=== PATIENT | male | born 1940 | race Hispanic/Latino ===

== ENCOUNTER 2018-09-17 10:16 | Inpatient (IN) | payer MEDICARE ==
[~2018-09-17] VITALS: Ht 160 cm; Wt 98.5 kg
[~2018-09-17 10:16] MED LIST: AMLODIPINE BES2.5 MG; AMLODIPINE BESYL5 MG PO; AXIRON30 MG/1.5; BENICAR5 MG PO; BISOPROLOL-HCT1 EAC1 PO; BISOPROLOL-HCT1 EAC2; DIOVAN160 MG PO; INVOKAMET PO; LEVOTHYROXINE100 MCG; PRAVASTATIN SOD40 MG; TAMSULOSIN HCL0.4 MG PO; TERBINAFINE HC250 MG; TRIBENZOR 40-51 EAC1; VICTOZA 3-0.6 MG/0.1 SQ
[2018-09-17] MEDS ORDERED: ASPIRIN 81 MG CHEW TAB PO ONE ×2 (10:45→12:30)
[2018-09-17 10:54] LABS: BASOPHILS # (AUTO) 0.1 (0.0-0.1); BASOPHILS % 0.6 % (0.0-1.0); EOSINOPHILS # (AUTO) 0.2 (0.0-0.4); HEMATOCRIT 52.9 % (38.2-49.6); HEMOGLOBIN 17.7 g/dL (14.0-18.0); LYMPHOCYTES # (AUTO) 1.4 (1.0-3.2); MEAN CORPUSCULAR HEMOGLOBIN 29.3 pg (28-32); MEAN CORPUSCULAR HGB CONC 33.5 g/dL (31-35); MEAN CORPUSCULAR VOLUME 87.6 fL (81-99); MONOCYTES # (AUTO) 0.7 (0.2-0.8); MONOCYTES % 8.8 % (4.4-11.3); NEUTROPHILS # (AUTO) 5.6 (2.1-6.9); NEUTROPHILS % 70.1 % (38.7-80.0); PLATELET COUNT 190 x10e3/uL (140-360); RED BLOOD COUNT 6.04 x10e6/uL (4.3-5.7); RED CELL DISTRIBUTION WIDTH 14.1 % (11.7-14.4)
[2018-09-17 11:04] LABS: CLARITY,URINE CLEAR (CLEAR); COLOR,URINE YELLOW (YELLOW)
[2018-09-17 11:05] LABS: BILIRUBIN,URINE NEGATIVE (NEGATIVE); KETONES,URINE NEGATIVE (NEGATIVE); LEUKOCYTE ESTERASE ,URINE NEGATIVE (NEGATIVE); NITRITE,URINE NEGATIVE (NEGATIVE); PROTEIN,URINE DIPSTICK 1+ (NEGATIVE); URINE UROBILINOGEN 0.2 mg/dL (0.2 - 1)
[2018-09-17 11:09] LABS: INR 1.09; PROTHROMBIN TIME 15.1 seconds (11.9-14.5)
[2018-09-17 11:10] LABS: PARTIAL THROMBOPLASTIN TIME 31.6 seconds (23.8-35.5)
[2018-09-17 11:14] LABS: BACTERIA,URINE RARE /HPF; EPITHELIAL CELLS,URINE RARE /LPF; RBC,URINE 0-5 /HPF (0-5)
[2018-09-17 11:16] LABS: ALANINE AMINOTRANSFERASE 32 IU/L (0-55); ALBUMIN 3.3 g/dL (3.5-5.0); ALBUMIN/GLOBULIN RATIO 0.9 (0.8-2.0); ALKALINE PHOSPHATASE 83 IU/L (40-150); ANION GAP 16.2 mmol/L (8-16); BLOOD UREA NITROGEN 18 mg/dL (7-26); BUN/CREATININE RATIO 17 (6-25); CARBON DIOXIDE 26 mmol/L (22-29); CHLORIDE 104 mmol/L (98-107); CREATINE KINASE 55 IU/L (30-200); CREATININE, SERUM 1.07 mg/dL (0.72-1.25); EST GLOMERULAR FILTRATION RATE > 60 ML/MIN (60-); GLUCOSE 96 mg/dL (74-118); POTASSIUM 4.2 mmol/L (3.5-5.1); SODIUM 142 mmol/L (136-145)
--- NOTE | 2018-09-17 11:30 | Diagnostic Imaging Report ---
EXAMINATION: CHEST 2 VIEWS INDICATION: Abnormal EKG. COMPARISON: None FINDINGS: TUBES and LINES: None. LUNGS: Lungs are well inflated. There is mild central vascular congestion. Mild patchy bibasilar opacities, likely atelectasis. There is no evidence of pneumonia or pulmonary edema. PLEURA: No pleural effusion or pneumothorax. HEART AND MEDIASTINUM: There is mild cardiomegaly. There is a tortuous and ectatic thoracic aorta. BONES AND SOFT TISSUES: No acute osseous lesion. Soft tissues are unremarkable. UPPER ABDOMEN: No free air under the diaphragm. IMPRESSION: No acute radiographic abnormality. Cardiomegaly with central vascular congestion. No evidence of pulmonary edema. Ectatic and tortuous thoracic aorta. Signed by: Dr. Sly Peguero MD on 09/17/2018 11:27 AM
[2018-09-17] MEDS ORDERED: ENOXAPARIN SODIUM INJ 100 MG/ML SYR SC STA (12:11)
[2018-09-17] MEDS ORDERED: ONDANSETRON HCL INJ 2MG/ML 2ML 2 MG/ML VIAL IV PRN (12:30)
[2018-09-17 12:50] LABS: FREE THYROXINE INDEX 2.4263 (1.4-3.8); THYROID STIMULATING HORMONE 3.079 uIU/mL (0.350-4.940)
--- OUTSIDE RECORDS SUMMARY | 2018-09-17 13:37 | XMS REPORT ---
Author Author [facility] Address Unknown Phone Unavailable Care Team Providers Care Information Services Assistant Name Role Phone Sintia HOROWITZ Unavailable Unavailable Problems This patient has no known problems. Allergies, Adverse Reactions, Alerts This patient has no known allergies or adverse reactions. Medications This patient has no known medications. Results Test Description Test Time Test Comments Text Results Atomic Results Result Comments CHEST 2 VIEWS 2018-09-17 11:19:00 [facility] [address] [place] [address] Patient Name: JLUIS JENNINGS MR #: [id number] : 1940 Age/Sex: 77/M Req #: [id number] Adm Physician: Ordered by: YOKASTA MELENDEZ FLOOR COVERING LAYER Report #: [id number] Location: ER Room/Bed: Procedure: [id number] DX/CHEST 2 VIEWS Exam Date: 09/17/18 Exam Time: 1030 REPORT STATUS: Signed EXAMINATION: CHEST 2 VIEWS INDICATION: Abnormal EKG. COMPARISON: None FINDINGS: TUBES and LINES: None. LUNGS: Lungs are well inflated. There is mild central vascular congestion. Mild patchy bibasilar opacities, likely atelectasis. There is no evidence of pneumonia or pulmonary edema. PLEURA: No pleural effusion or pneumothorax. HEART AND MEDIASTINUM: There is mild cardiomegaly. There is a tortuous and ectatic thoracic aorta. BONES AND SOFT TISSUES: No acute osseous lesion. Soft tissues are unremarkable. UPPER ABDOMEN: No free air under the diaphragm. IMPRESSION: No acute radiographic abnormality. Cardiomegaly with central vascular congestion. No evidence of pulmonary edema. Ectatic and tortuous thoracic aorta. Signed by: Dr. Jose Trevino MD on 09/17/2018 11:27 AM Dictated By: JOSE TREVINO MD [id number] Transcribed By: NICCI on 09/17/18 112 COPY TO: YOKASTA MELENDEZ NP
[2018-09-17] MEDS: SODIUM CHLORIDE 0.9% 1000ML 1,000 ML IV SCH (14:00)
--- NOTE | 2018-09-17 15:14 | NUR ---
Recvd patient from ER, assisted him to bed, AAOx3, Not in any distress, denies any chest pain or SOB, on Tele box running Afib 109, call placed and left voice message to Dr Parrish
[2018-09-17 15:46] VITALS: BP 122/90
--- NOTE | 2018-09-17 16:05 | NUR ---
Lory call from From Dr Shivani preston new order to consult Dr De La Fuente
[2018-09-17 16:36] VITALS: BP 137/96
[2018-09-17] MEDS: BISOPROLOL FUMARATE 10 MG TAB PO SCH (16:55)
[2018-09-17] MEDS: HYDROCHLOROTHIAZIDE 25 MG TAB PO SCH (16:55)
[2018-09-17 18:57] LABS: CREATINE KINASE 60 IU/L (30-200)
--- NOTE | 2018-09-17 19:00 | NUR ---
received report from day nurse. patient is resting comfortably in bed. bed is in lowest position. will continue to monitor patient.
[2018-09-17 19:25] VITALS: BP 138/96
[2018-09-17 20:00] VITALS: BP 138/96
[2018-09-18] VITALS (8 sets, daily range): BP systolic 113–129; BP diastolic 73–91
[2018-09-18] MEDS: SODIUM CHLORIDE 0.9% 1000ML 1,000 ML IV SCH (01:25)
[2018-09-18 04:04] LABS: CREATINE KINASE 51 IU/L (30-200)
[2018-09-18 05:23] LABS: BASOPHILS # (AUTO) 0.1 (0.0-0.1); EOSINOPHILS # (AUTO) 0.4 (0.0-0.4); EOSINOPHILS % 4.4 % (0.0-6.0); HEMATOCRIT 52.1 % (38.2-49.6); LYMPHOCYTES # (AUTO) 1.7 (1.0-3.2); MEAN CORPUSCULAR HEMOGLOBIN 28.9 pg (28-32); MEAN CORPUSCULAR HGB CONC 32.6 g/dL (31-35); MEAN CORPUSCULAR VOLUME 88.5 fL (81-99); MONOCYTES # (AUTO) 0.7 (0.2-0.8); MONOCYTES % 8.3 % (4.4-11.3); NEUTROPHILS # (AUTO) 5.3 (2.1-6.9); NEUTROPHILS % 64.8 % (38.7-80.0); PLATELET COUNT 189 x10e3/uL (140-360); RED BLOOD COUNT 5.89 x10e6/uL (4.3-5.7); RED CELL DISTRIBUTION WIDTH 14.1 % (11.7-14.4)
[2018-09-18 05:50] LABS: ANION GAP 14.6 mmol/L (8-16); BLOOD UREA NITROGEN 17 mg/dL (7-26); BUN/CREATININE RATIO 15 (6-25); CALCIUM 9.3 mg/dL (8.4-10.2); CARBON DIOXIDE 23 mmol/L (22-29); CHLORIDE 104 mmol/L (98-107); CREATININE, SERUM 1.11 mg/dL (0.72-1.25); EST GLOMERULAR FILTRATION RATE > 60 ML/MIN (60-); GLUCOSE 96 mg/dL (74-118); POTASSIUM 4.6 mmol/L (3.5-5.1); SODIUM 137 mmol/L (136-145)
[2018-09-18] MEDS: LEVOTHYROXINE SODIUM 100 MCG TAB PO SCH (05:52)
--- NOTE | 2018-09-18 06:59 | NUR ---
Report given to day nurse. patient is resting comfortably in bed. bed is in lowest position and call nolen is within reach. will continue to monitor patient.
--- NOTE | 2018-09-18 07:25 | NUR ---
Patient up in bed, Alert with no distress, denies any chest pain or SOB, Call light in reach
--- NOTE | 2018-09-18 07:41 | Diagnostic Imaging Report ---
EXAMINATION: CHEST SINGLE (PORTABLE) INDICATION: ^NEW ONSET AFIB ^[id number] ^[id number] COMPARISON: 09/17/2018 FINDINGS: AP view TUBES and LINES: None. LUNGS: Lungs are well inflated. Bilateral interstitial edema, mildly increased. Bibasilar atelectasis. PLEURA: No pleural effusion or pneumothorax. HEART AND MEDIASTINUM: Stable moderate enlargement of the cardiac silhouette. Tortuous thoracic aorta with possible ectasia of the ascending thoracic segment. BONES AND SOFT TISSUES: No acute osseous lesion. Soft tissues are unremarkable. UPPER ABDOMEN: No free air under the diaphragm. IMPRESSION: Cardiomegaly with mildly increased bilateral interstitial edema. Signed by: Dr. Mercedez Perez M.D. on 09/18/2018 7:38 AM
[2018-09-18] MEDS ORDERED: CANAGLIFLOZIN 300 MG TABLET PO SCH (08:00)
[2018-09-18] MEDS ORDERED: METFORMIN HCL 500 MG TAB PO SCH (08:00)
[2018-09-18] MEDS: TAMSULOSIN HCL 0.4 MG CAP PO SCH (08:28)
[2018-09-18] MEDS: HYDROCHLOROTHIAZIDE 25 MG TAB PO SCH (08:28)
[2018-09-18] MEDS: VALSARTAN 160 MG TAB PO SCH (08:28)
[2018-09-18] MEDS: ASPIRIN 81 MG ENTERIC COATED PO SCH (08:28)
[2018-09-18] MEDS: BISOPROLOL FUMARATE 10 MG TAB PO SCH (08:29)
[2018-09-18] MEDS ORDERED: CANAGLIFLOZIN PO SCH (09:00)
[2018-09-18] MEDS ORDERED: METFORMIN PO SCH (09:00)
[2018-09-18] MEDS ORDERED: BISOPROLOL/HCTZ 5/6.25MG TAB PO SCH (09:00)
[2018-09-18] MEDS ORDERED: DEXTROSE 50% SYRINGE 50 ML IV PRN (12:00)
[2018-09-18] MEDS ORDERED: METOPROLOL TARTRATE INJ 1 MG/ML VIAL IV PRN (12:45)
[2018-09-18] MEDS ORDERED: HYDRALAZINE HCL 20 MG/ML VIAL IV PRN (12:45)
[2018-09-18 13:13] LABS: CHOL/HDL RATIO 5.2 (3.9-4.7); MAGNESIUM 1.7 MG/DL (1.3-2.1); PHOSPHORUS 2.7 MG/DL (2.3-4.7)
[2018-09-18] MEDS: METOPROLOL TARTRATE 50 MG TAB PO SCH ×2 (13:20→17:40)
--- NOTE | 2018-09-18 14:04 | History and Physical ---
CHIEF COMPLAINT: Atrial fibrillation with rapid ventricular rate response. HISTORY OF PRESENT ILLNESS: Patient is a 77-year-old male with hypertension, hypothyroidism, enlarged prostate, and diabetes type 2 with no symptoms, came to see his primary care physician, Dr. eCcil Grant for check up and found to have atrial fibrillation with rapid rate. The patient was told to go to the hospital. In the emergency room, his heart rate was 132, beat irregularly irregular with atrial fibrillation. Patient did not complain of any palpitation or chest pain. His echocardiogram that was done showed ejection fraction of 40-45%. The patient is otherwise stable. He had mild TR and trace mitral regurgitation. The patient is otherwise stable. Cardiac enzyme is negative at this time. The patient had medications for heart rate. He was given IV Cardizem. The patient is otherwise stable at this time. The atrial fibrillation is new onset, no history previously. PAST MEDICAL HISTORY: Diabetes, hypertension, hypothyroidism, and enlarged prostate, new-onset atrial fibrillation. PAST SURGICAL HISTORY: Noncontributory. SOCIAL HISTORY: Patient does not smoke or use alcohol. No recreational drugs. ALLERGIES: NO KNOWN ALLERGIES. HOME MEDICATIONS: Norvasc, bisoprolol/HCTZ, levothyroxine, Victoza, Flomax, valsartan, Invokana, and metformin. PHYSICAL EXAMINATION VITAL SIGNS: Temperature is 98, blood pressure 129/85, pulse rate 130. CARDIOVASCULAR: Heart rate is atrial fibrillation, rate controlled now at 63, irregularly regular. No gross murmur, gallop, or rub. ABDOMEN: Soft, obese, nontender and no distention. EXTREMITIES: No gross cyanosis or edema. NEUROLOGIC: No gross focal deficit. LABORATORY DATA: Sodium is 137, potassium 4.6, chloride 104, bicarb 23, BUN is 17, creatinine 1.3, glucose 96. WBC is 8.2, hemoglobin 17, hematocrit 52, and platelets 189. INR is 1.09. TSH is 3.07. BNP is 483. Cardiac enzymes negative. IMPRESSION 1. New-onset atrial fibrillation with rapid ventricular rate response. 2. Low left ventricular ejection fraction of 40% on echocardiogram. 3. Baseline diabetes type 2. 4. Hypertension. 5. Enlarged prostate. 6. Hypothyroidism. PLAN: Patient will need cardiac workup with . We will adjust patient's home medications. Place the patient on Lovenox for now. We will monitor the patient closely. Discussed with the patient regarding treatment plan. The patient will be admitted. Job#: [id number] KEYONNA
[2018-09-18] MEDS: ENOXAPARIN INJ 80 MG/0.8 ML SYR SC SCH ×2 (14:50→21:47)
[2018-09-18] MEDS: INSULIN LISPRO 100 UNIT/1 ML 3ML VIAL SQ SCH ×2 (16:30→21:00)
[2018-09-18] MEDS ORDERED: RIVAROXABAN 10 MG TABLET PO SCH (17:00)
--- NOTE | 2018-09-18 18:29 | NUR ---
patient resting in bed, denies any pain, not in any distress, call light in reach
--- NOTE | 2018-09-18 22:00 | NUR ---
received pt from room 176 to room 210, AAOx4, resp even and unlabored, skin intact, tele #14 with pt and pt running afib, ambulatory by self with steady gait, able to verbalize needs, no c/o pain/discomfort, bed in lowest and locked position with call light in reach
[2018-09-19] VITALS: BP 131/99
[2018-09-19 04:00] VITALS: BP 120/85
[2018-09-19 05:17] LABS: BASOPHILS # (AUTO) 0.1 (0.0-0.1); BASOPHILS % 0.8 % (0.0-1.0); EOSINOPHILS # (AUTO) 0.4 (0.0-0.4); EOSINOPHILS % 4.2 % (0.0-6.0); HEMATOCRIT 50.4 % (38.2-49.6); HEMOGLOBIN 16.9 g/dL (14.0-18.0); LYMPHOCYTES # (AUTO) 1.8 (1.0-3.2); MEAN CORPUSCULAR HGB CONC 33.5 g/dL (31-35); MEAN CORPUSCULAR VOLUME 86.6 fL (81-99); MONOCYTES % 10.7 % (4.4-11.3); NEUTROPHILS # (AUTO) 5.7 (2.1-6.9); NEUTROPHILS % 63.7 % (38.7-80.0); PLATELET COUNT 196 x10e3/uL (140-360); RED BLOOD COUNT 5.82 x10e6/uL (4.3-5.7); RED CELL DISTRIBUTION WIDTH 14.3 % (11.7-14.4)
[2018-09-19] MEDS: LEVOTHYROXINE SODIUM 100 MCG TAB PO SCH (05:26)
[2018-09-19 05:39] LABS: ANION GAP 15.1 mmol/L (8-16); BLOOD UREA NITROGEN 20 mg/dL (7-26); BUN/CREATININE RATIO 19 (6-25); CALCIUM 9.2 mg/dL (8.4-10.2); CARBON DIOXIDE 21 mmol/L (22-29); CHLORIDE 105 mmol/L (98-107); CREATININE, SERUM 1.04 mg/dL (0.72-1.25); EST GLOMERULAR FILTRATION RATE > 60 ML/MIN (60-); GLUCOSE 87 mg/dL (74-118); POTASSIUM 4.1 mmol/L (3.5-5.1); SODIUM 137 mmol/L (136-145)
--- NOTE | 2018-09-19 07:11 | NUR ---
PT ALERT RESP EVEN AND UNLABORED AT THIS TIME NO DISTRESS NOTED, TELE IN PLACE, NO C/O PAIN WHEN ASKED, PT ABLE TO MAKE NEEDS KNOWN, CALL LIGHT IN REACH.
[2018-09-19] MEDS: INSULIN LISPRO 100 UNIT/1 ML 3ML VIAL SQ SCH ×4 (07:30→21:00)
[2018-09-19 08:41] VITALS: BP 123/70
[2018-09-19] MEDS: ASPIRIN 81 MG ENTERIC COATED PO SCH (09:33)
[2018-09-19] MEDS: ENOXAPARIN INJ 80 MG/0.8 ML SYR SC SCH (09:34)
[2018-09-19] MEDS: VALSARTAN 160 MG TAB PO SCH (09:34)
[2018-09-19] MEDS: TAMSULOSIN HCL 0.4 MG CAP PO SCH (09:34)
[2018-09-19] MEDS: METOPROLOL TARTRATE 50 MG TAB PO SCH ×2 (09:34→17:00)
[2018-09-19 11:44] VITALS: BP 115/69
--- NOTE | 2018-09-19 12:43 | Diagnostic Imaging Report ---
EXAM: CT Chest WITH contrast INDICATION: Hemoptysis. COMPARISON: Chest radiograph 09/18/2018. TECHNIQUE: Chest was scanned utilizing a multidetector helical scanner from the lung apex through the level of the adrenal glands without administration of IV contrast. Coronal and sagittal reformations were obtained. Routine protocol was performed. Dose modulation, iterative reconstruction, and/or weight based adjustment of the mA/kV was utilized to reduce the radiation dose to as low as reasonably achievable. IV CONTRAST: 100 mL of Isovue 370 RADIATION DOSE: Total DLP: 581 mGy*cm Estimated effective dose: (DLP x 0.014 x size factor) mSv COMPLICATIONS: None FINDINGS: LINES/ TUBES: None. VASCULAR: There is a type A aortic injury with possible dissection flap extending from the proximal ascending aorta on series 2, image 31 and terminating distally proximal to the takeoff of the right brachiocephalic artery on image 23. Soft tissue thickening along the right lateral margin of the aorta could reflect thrombus within a false lumen or alternatively wall thickening from intramural hematoma. Study is suboptimally evaluated in the absence of dedicated CT angiogram. There is an ascending aortic aneurysm measuring up to 6.2 cm. The aortic arch measures up to 3.2 cm and the descending thoracic aorta measures up to 3 cm. Scattered atherosclerotic calcifications within the thoracic aorta and coronary vessels. LUNGS AND AIRWAYS: The central airways are patent. There are multifocal patchy groundglass and interstitial opacities scattered throughout bilateral lungs, right greater than left. The findings are most pronounced in the right lower lobe, middle lobe, and right upper lobe. There is a 6 mm solid pulmonary nodule in the left lower lobe on series 3, image 39. PLEURA: The pleural spaces are clear. HEART AND MEDIASTINUM: The thyroid gland is normal. No mediastinal, hilar or axillary lymphadenopathy. There is mild cardiomegaly. No evidence of pericardial effusion. UPPER ABDOMEN: Limited visualization of the upper abdomen demonstrates no abnormality within the partially visualized liver spleen or pancreas. Partially seen left renal cyst. There is reflux of contrast into the IVC, suggestive of right heart dysfunction. BONES: No acute osseous abnormality. No suspicious lytic or blastic lesions. Mild degenerative changes of the visualized spine. IMPRESSION: Ascending thoracic aortic aneurysm measuring up to 6.2 cm with either type A aortic dissection with thrombosed false lumen in the subacute/chronic setting or possibly intramural hematoma in the acute setting. No evidence of extension into the great vessels. Findings are incompletely evaluated in the absence of dedicated CTA. Recommend dedicated CTA of the thoracic aorta for further evaluation and surgical consultation. Multifocal ground glass opacities with cardiomegaly. Findings could reflect mild pulmonary edema. Alternative considerations could include infectious or inflammatory etiologies. Pulmonary nodule measuring 6 mm in the left lower lobe. Follow-up chest CT is suggested in 6-12 months to assess for stability. Contact attempt was made starting on 07/19/2019 at 1235 PM. Attempted to contact referring physician on 09/19/2018 at 1242 PM, went to voice mail. Above findings were discussed with LOCO Mascorro on 07/19/2019 at 1250 PM who indicated the findings were understood and will be communicated to the referring physician. Radiologist call back cell number was also provided. Signed by: Dr. Sly Peguero MD on 09/19/2018 12:54 PM
--- NOTE | 2018-09-19 12:55 | NUR ---
received call from Dr. Peguero. about pt CT, Dr. Peguero states called Dr Machuca got voice mail.
--- NOTE | 2018-09-19 13:00 | NUR ---
call to Dr Parrish to give finding. found on CT, left message for . Also informed charge nurse of Dr. Peguero findings.
--- NOTE | 2018-09-19 13:08 | NUR ---
Dr. Billy here to speak with pt about findings on his CT. pt currently on bedrest.
--- NOTE | 2018-09-19 13:47 | NUR ---
spoke with Dr. Parrish orders given to consult Dr Piedra.
--- NOTE | 2018-09-19 13:51 | NUR ---
A/S spoke with Emili, stated Dr. Piedra java front end web developer.
--- NOTE | 2018-09-19 13:51 | NUR ---
Stat consult to Dr. Piedra, for Dr. Parrish
--- NOTE | 2018-09-19 14:00 | NUR ---
Dr. Piedra return call, and stated consult Dr. Martínez in Med center. infomation given to Nursing Telemetry Tech Logn Thomas, whom then gave me a number for the transfer center, For Dr. Martínez, Spoke with A/S Naina whom stated Dr. Whitt is crowd controller, also called Dr. Peguero to inform him that Dr. Whitt from [facility] will call phone number given to A/S Naina.
--- NOTE | 2018-09-19 14:20 | NUR ---
Dr Parrish returned call, information given that Dr. Whitt was consulted on pt findings on CT, also gave Dr. Shivani Peguero cell number.
--- NOTE | 2018-09-19 14:30 | NUR ---
Dr. Piedra called and accepted pt. [facility].
[2018-09-19 15:57] VITALS: BP 124/96
--- NOTE | 2018-09-19 17:00 | NUR ---
PT ALERT RESP EVEN AND UNLABORED AT THIS TIME , TELE READING A FIB 112, NO C/O PAIN NO C/O OF SOB, WILL CONT TO MONITOR, DOUG LIGHT IN REACH
--- NOTE | 2018-09-19 18:00 | NUR ---
AWAITING TRANSFER, CALL LIGHT IN REACH.
[2018-09-19] MEDS ORDERED: SODIUM CHLORIDE 0.9% 100 ML 100 ML ONE (18:03)
[2018-09-19] MEDS ORDERED: IOPAMIDOL 370 MG/ML 200 ML INFUS..BTL INJ ONE (18:03)
--- NOTE | 2018-09-19 19:56 | NUR ---
REPORT GIVEN TO ONCOMING NURSE. FOR CONTINUED CARE.
[2018-09-19 20:00] VITALS: BP 130/94
--- NOTE | 2018-09-19 21:02 | NUR ---
RECEIVED PT IN BED AOX3 .NO ACUTE DISTRESS NOTED .WAITING TO TRANSFER TO [facility] .CALL LIGHT WITH IN REACH .CONTINUE TO MONITOR
[2018-09-20] VITALS (21 sets, daily range): BP systolic 101–135; BP diastolic 73–109
[2018-09-20] MEDS: LEVOTHYROXINE SODIUM 100 MCG TAB PO SCH (05:42)
--- NOTE | 2018-09-20 06:21 | NUR ---
PT WAS WAITING TO GO TO REPLACED BY [facility] .WAITING TO GET THE ROOM.CALL SMALL WITH IN REACH
[2018-09-20] MEDS: INSULIN LISPRO 100 UNIT/1 ML 3ML VIAL SQ SCH ×4 (07:30→21:00)
[2018-09-20] MEDS: METOPROLOL TARTRATE 50 MG TAB PO SCH ×2 (09:00→16:40)
[2018-09-20] MEDS: VALSARTAN 160 MG TAB PO SCH (09:00)
[2018-09-20] MEDS: TAMSULOSIN HCL 0.4 MG CAP PO SCH (09:43)
[2018-09-20] MEDS: SODIUM CHLORIDE 0.9% 1000ML 1,000 ML IV SCH (10:30)
--- NOTE | 2018-09-20 11:11 | NUR ---
CASE MANAGEMENT ASSESSMENT Radio Repairer to bedside to discuss plan of care with patient/family. CM/SW role and care transitions discussed. Anticipated discharge plan discussed along with duration of care. CM/SW discussed patients right to make decisions in care. CM/SW work hours given. Patient lives: alone Admit/Transfer: thru ED Hospital/ER visits since last admit: never been hospitalized; no ED visits POA/Emergency contact: sarah Jules [phone], jemal Ramírez [phone] Current/Previous Home Health: none PCP/Follow-up Care: Dr. Celis; advised pt to follow up with a doctor within 7 days of discharge from hospital. Current/Previous DME: none Medications (referring to index hospitalization or the first time you were in the hospital) a. Were changes made in your medications when you were in the hospital on [index hospitalization]? n/a b. Did you understand the changes? n/a c. Were you able to obtain your new medications right away? n/a d. Were you able to take your medications like the doctor wanted you to? n/a e. Did the hospital give you an accurate, easy to understand list of medications when you left? n/a Scale of 1-10 how comfortable does patient feel with disease management in outpatient settin Other Services: none Employment Status: retired Areas of Concerns: new onset a fib with rvr; aortic aneurysm Referral Needs: none Education Needs: medical management IMM/NOLAN given and signed (if applicable): IMM Goal for discharge: currently in process of being transferred to Medical Center. Initiated over the weekend. CM/SW left business card at the bedside with contact information. Name and number was also written on the patients whiteboard. Patient verbalized understanding of discussion. CM will follow-up with ongoing discharge and transition of care needs.
[2018-09-20] MEDS ORDERED: FENTANYL CITRATE/PF 100MCG/2 ML INJ ONE (12:14)
[2018-09-20] MEDS ORDERED: LIDOCAINE HCL 2% LOCAL 20 ML VIAL ONE (12:14)
[2018-09-20] MEDS ORDERED: IOPAMIDOL 370 MG/ML 200 ML INFUS..BTL INJ ONE (12:14)
[2018-09-20] MEDS ORDERED: MIDAZOLAM HCL 2 MG/2 ML VIAL ONE (12:14)
[2018-09-20] MEDS ORDERED: HEPARIN SOD/SOD CHLORIDE 2,000 ML ONE (12:14)
[2018-09-20] MEDS ORDERED: SODIUM CHLORIDE 0.9% 1000ML 1,000 ML ONE (12:14)
--- NOTE | 2018-09-20 12:20 | NUR ---
patient off unit for heart cath.
--- NOTE | 2018-09-20 12:46 | NUR ---
Called transfer center and spoke to Mary Ellen. Still pending bed availability. She stated that pt will get a bed as soon as one becomes available.
[2018-09-20] MEDS ORDERED: NOREPINEPHRINE 8 MG/D5W 250 ML 0 ML ONE (13:11)
[2018-09-20] MEDS ORDERED: ATROPINE SULFATE 0.1 MG/ML 10ML SYR ONE (13:30)
--- NOTE | 2018-09-20 15:30 | NUR ---
Received report from Francine Nicole RN. Reviewed medications given, and procedural events. Patient laying flat with right leg in bed. Patient awake,alert,and oriented x3. Respirations even and unlabored on room air. Sheath removed from right groin at 1351 per Francine ADAN. Dressing to right groin is clean,dry, and intact without signs or symptoms of infiltrations at this time. IV to right antecubital is without signs or symptoms of infiltration at this time. Patient appears to be in no signs of acute distress. Patient waiting for IMCU bed at this time.
--- NOTE | 2018-09-20 15:50 | NUR ---
Dr. De La Fuente notified of BP 130s/100s. Dr. De La Fuente stated no new orders in regards to blood pressure. Dr. De La Fuente stated ok to resume previous diet. stated patient needs to lay flat for 6 hours. Patient needs to continue bedrest. Patient may sit up and move right leg after 6 hours.
--- NOTE | 2018-09-20 15:57 | NUR ---
Patient void 100 ml urine via urinal. No distress noted at this time.
--- NOTE | 2018-09-20 16:25 | NUR ---
Finger food tray brought to bedside. will monitor patient.
--- NOTE | 2018-09-20 17:24 | Operative Report ---
DATE OF PROCEDURE: September 20, 2018 PROCEDURES PERFORMED 1. Left heart catheterization. 2. Selective coronary angiogram. INDICATIONS: Aortic dissection, rule out coronary artery disease. LV dysfunction. BLOOD LOSS: 2 mL. ANESTHESIA: 2% lidocaine for local anesthesia. Fentanyl and Versed for conscious sedation. DESCRIPTION OF PROCEDURE: After informed consent, patient was brought to the cardiac catheterization laboratory and placed on the table. Both groins were painted and draped in a sterile fashion. Lidocaine injected in the right groin for local anesthesia. Right femoral artery was accessed by Seldinger technique and a 5-Surinamese sheath was placed in right femoral artery. Attempts were made to cannulate the left main using a JL4 5-Surinamese catheter; however, it would not access the ostium due to tortuosity and dilatation at the aortic root. So a JL5 5-Surinamese catheter was subselective to cannulate the left main. Coronary angiogram was performed and images obtained in multiple views. The right coronary artery was cannulated using a 3DRC 5-Surinamese catheter. Coronary angiogram was performed and images obtained in multiple views. After the coronary angiogram was performed, patient was noted that some ST elevations on the monitor. He transiently dropped his blood pressure to 67 systolic. Patient was given IV fluids. Within a few minutes, patient's blood pressure went to [address] segment elevation resolved. Subsequently EKG showed atrial fibrillation with some T-wave inversions in inferior leads without any ST elevation. No LV gram or aortogram was performed. REPORT LEFT MAIN: Normal caliber and no significant stenosis. LEFT ANTERIOR DESCENDING: Normal caliber. No significant stenosis. LEFT CIRCUMFLEX: Normal caliber and luminal irregularities. RIGHT CORONARY ARTERY: Normal caliber and no significant stenosis. PLAN: Patient is awaiting transfer to the [facility] for further management of his type A thoracic aortic dissection management. Job#: [id number] ILIR
--- NOTE | 2018-09-20 17:25 | NUR ---
Gave report to Kashif Meadows RN. Reviewed medications given during procedure, orders, and procedural events. Dressing to right groin is clean,dry, and intact and appears to be without signs or symptoms of bleeding at this time. Patient to lay flat until 1950 per physician orders. Per household appliance mechanic Patient is assigned bed 197 and is being cleaned at this time. Patient awake,alert, and orientedx3. Respirations even and unlabored on room air. No distress noted at this time.
--- NOTE | 2018-09-20 17:27 | NUR ---
Patient void clear yellow urine approximately 50ml.
--- NOTE | 2018-09-20 18:10 | NUR ---
RECEIVED PATIENT S/P CARDIAC CATH, AWAKE AND ALERT AND NO S/S OF DISTRESS, DRESSING TO RIGHT GROIN C/D/I WITH NO BLEEDING OR HEMATOMA NOTED, RIGHT PEDAL PULSES PALPABLE, INFORMED PATIENT BEDREST UNTIL 8PM, VERBALIZED UNDERSTANDING, UPDATED ON POC AND CALL SMALL IN REACH, WILL CONTINUE TO MONITOR
--- NOTE | 2018-09-20 19:30 | NUR ---
Received patient hemodynamically stable, calm in bed, femoral dressing dry, no complaints raised.
--- NOTE | 2018-09-20 22:57 | Consultation ---
DATE OF CONSULTATION: September 20, 2018 REASON FOR CONSULT: Ascending aortic aneurysm with possible dissection, atrial fibrillation; requested by Dr. Joe Parrish. [facility] [employer] [employer] is Dr. De La Fuente. HISTORY: I saw and evaluated this patient on September 20, 2018. He is a 77-year-old male with hypertension, hypothyroidism, who went to his primary care physician, Dr. Cecil Grant, and was found to have atrial fibrillation with rapid response. He was sent to the emergency room at [facility]. In the ER, the heart rate was 132 in an atrial fibrillation rhythm. He did not have any chest pain or complaints of palpitation. Echocardiogram showed EF 40% to 45% without any wall motion abnormalities. Patient had mild and trace mitral regurgitation. No aortic regurgitation was noted. Cardiac enzymes were negative. He was given IV Cardizem. Patient is still in atrial fibrillation but with a controlled rate of approximately 90 to 100. There is no history of myocardial infarction or chest pain. Patient has not had any syncope. This episode of atrial fibrillation is the initial episode. No PND or orthopnea. Patient says his exercise tolerance is good. He continues to smoke about a 1/2-pack per day and has a long history of smoking. After admission patient had some hemoptysis. His CT scan of the chest was obtained. This showed a dilated ascending aorta with possible hematoma and possible dissection. I have reviewed the images on the CT scan. Cardiac catheterization reportedly shows clean coronaries. It was not possible to image the ascending aorta at the time of cardiac catheterization. Cardiac cath films are not available this evening. Surgical evaluation is requested. PAST MEDICAL HISTORY: Positive for diabetes, hypertension, hypothyroidism, enlarged prostate and atrial fibrillation as above. PAST SURGICAL HISTORY: Unremarkable. SOCIAL HISTORY: Patient is a longtime smoker. He is still smoking about a 1/2-pack per day. No alcohol or IV drugs. ALLERGIES: NONE KNOWN. MEDICATIONS AT HOME: Norvasc, bisoprolol/hydrochlorothiazide, levothyroxine, Victoza, Flomax, valsartan, and metformin. FAMILY HISTORY: Negative for aneurysmal disease. REVIEW OF SYSTEMS GENERAL: Positive for fatigue. NEUROLOGIC: Negative for focal weakness in the extremities or dysarthria. HEENT: Negative for decreased vision or decreased hearing. CARDIAC: Positive as above. Positive for occasional chest pain and palpitation. PULMONARY: Positive for shortness of breath. Negative for wheezing. GI: No constipation or diarrhea. : Negative for hematuria or dysuria. ENDOCRINE: Negative for polyuria or polydipsia. VASCULAR: Negative for claudication. SKIN: Negative for rashes or itching. HEMATOLOGIC: Negative for clotting or bleeding. INFECTIOUS: Negative for fevers or sweating. PSYCHIATRIC: Negative for depression or anxiety. PHYSICAL EXAMINATION GENERAL: man, sitting up in bed, in no apparent distress. VITAL SIGNS: Blood pressure 115/60, pulse 90 to 100 and irregularly irregular, and respiratory rate 16. NECK: Supple and nontender. No JVD. CARDIAC: Irregular rate and an irregular rhythm. There are no murmurs or rubs. LUNGS: Clear to auscultation and percussion bilaterally. ABDOMEN: Globoid, benign. Good bowel sounds. No hepatosplenomegaly. BACK: No CVA tenderness. No muscular spasms. EXTREMITIES: No cyanosis, clubbing, or edema. VASCULAR: Carotids 2+/2+ bilaterally. No carotid bruits that I could appreciate. Radials are 1+/2+ bilaterally, femorals are 2+/2+ bilaterally. SKIN: No rashes or nonhealing ulcers. MUSCULOSKELETAL: Full range of motion at all joints. No joint swelling. NEUROLOGIC: Cranial nerves II through XII are intact. Sensation is intact to light touch and pinprick bilaterally. Strength is 5/5 in all extremities. LYMPHATIC: Negative for cervical, clavicular, or femoral adenopathy. LABORATORIES: White count 7.9, hemoglobin 17.7, hematocrit 52.9, and platelet count 190,000. INR is 1.09 and PT is 15.1. (Patient has been maintained on Xarelto.) IMPRESSION: Dilated ascending aorta. Evidence for dissection is not completely clear. We are trying to arrange transfer to [facility] as soon as possible to treat the aneurysmal disease and evaluate for possible dissection. Thank you very much for asking me to see this nice man. Job#: [id number]
[2018-09-21] VITALS (7 sets, daily range): BP systolic 97–136; BP diastolic 77–105
[2018-09-21] MEDS: SODIUM CHLORIDE 0.9% 1000ML 1,000 ML IV SCH (05:00)
[2018-09-21] MEDS: LEVOTHYROXINE SODIUM 100 MCG TAB PO SCH (06:00)
[2018-09-21] MEDS: INSULIN LISPRO 100 UNIT/1 ML 3ML VIAL SQ SCH ×4 (07:30→19:51)
[2018-09-21] MEDS: VALSARTAN 160 MG TAB PO SCH (08:40)
[2018-09-21] MEDS: METOPROLOL TARTRATE 50 MG TAB PO SCH ×2 (08:40→16:46)
[2018-09-21] MEDS: TAMSULOSIN HCL 0.4 MG CAP PO SCH (08:40)
[2018-09-21] MEDS ORDERED: ARTIFICIAL TEARS (OPTH) 15 ML BTL OU PRN (09:30)
--- NOTE | 2018-09-21 16:08 | NUR ---
report called to Jabari ADAN at [facility]. pt stable at this time.
--- NOTE | 2018-09-21 19:54 | NUR ---
Report received from AM nurse Radha. Patient comfortably sitting on the chair. Denied pain and no SOB. No respiratory distress noted. Spo2 maintained 98% with RA. V/S WNL. Patient waiting for EMS to transfer to [facility] for his continuing care.
--- NOTE | 2018-09-21 20:04 | NUR ---
Patient transferred to [facility] with EMS at 2003 by stretcher.Denied pain respiration even and unlabored,Spo2 maintained 99% with RA. BP was high 160/124,medicated with IV metoprolol 2.5mg as ordered. Patient left unit with stable condition.
== END 2018-09-21 20:03 | disposition short-term general hospital (02) | DRG 286 ==
LOC: ER 10:16 → ERHOLD 13:34 → IMCU 15:10 → OBSVTOIN 09-18 12:01 → MED/SURG2 09-18 20:41 → IMCU 09-20 18:19
PROVIDERS: ADMIT Internal Medicine; ATTEND Internal Medicine
PROC: 4A023N7 Measurement of Cardiac Sampling and Pressure, Left Heart, Percutaneous Approach (ICD-10-PCS; principal; 2018-09-20)
PROC: B2111ZZ Fluoroscopy of Multiple Coronary Arteries using Low Osmolar Contrast (ICD-10-PCS; 2018-09-20)
DX: I71.02 Dissection of abdominal aorta (principal); I50.23 Acute on chronic systolic (congestive) heart failure; R04.2 Hemoptysis; I11.0 Hypertensive heart disease with heart failure; E03.9 Hypothyroidism, unspecified; F17.210 Nicotine dependence, cigarettes, uncomplicated; E66.01 Morbid (severe) obesity due to excess calories; Z68.38 Body mass index [BMI] 38.0-38.9, adult; G47.30 Sleep apnea, unspecified; I48.91 Unspecified atrial fibrillation; E11.9 Type 2 diabetes mellitus without complications; Z79.4 Long term (current) use of insulin; N40.0 Benign prostatic hyperplasia without lower urinary tract symptoms
CPT/HCPCS: 36415; 71045; 71046; 71260; 80048; 80053; 80061; 81001; 82306; 82550; 82553; 82948; 83036; 83735; 83880; 84100; 84436; 84443; 84479; 84484; 84550; 85025; 85610; 85651; 85730; 93005; 93306; 93454; 99284; G0378; J1650; J2001; J2250; J7030; Q9967

== ENCOUNTER 2018-11-24 20:26 | Emergency (ER) | payer MEDICARE ==
--- OUTSIDE RECORDS SUMMARY | 2018-11-24 20:29 | XMS REPORT | Clinical Summary ---
Author Author PHYLICIA [facility] Address Unknown Phone Unavailable Care Team Providers Care Wall Steamer Name Role Phone Joe Winchester Unavailable Allergies No Known Allergies Medications End Date Status Medication Sig Dispensed Refills Start Date Active levothyroxine (SYNTHROID, levothyroxine 0 LEVOTHROID) 112 MCG 112 mcg tablet tablet Active tamsulosin (FLOMAX) 0.4 tamsulosin 0 mg Cap 24 hr capsule 0.4 mg 9 capsule Active oxybutynin (DITROPAN) 5 Take 5 mg by 0 MG tablet mouth. 9 Active losartan-hydroCHLOROthiaz Take 1 tablet 0 an (HYZAAR) 100-25 mg by mouth. 9 per tablet Active aspirin 81 MG EC tablet Take 81 mg by 0 mouth daily. Active metoprolol (LOPRESSOR) Take 1 tablet 60 tablet 0 100 MG tablet (100 mg 9 total) by mouth 2 (two) times daily. Active rivaroxaban (XARELTO) 20 Take 1 tablet 60 tablet 0 mg Tab tablet (20 mg total) 9 by mouth daily with dinner. 10/01/2018 Discontinued atenolol (TENORMIN) 50 MG atenolol 50 0 tablet mg tablet 10/01/2018 Discontinued clopidogrel (PLAVIX) 75 clopidogrel 0 mg tablet 75 mg tablet 9 10/01/2018 Discontinued rivaroxaban (XARELTO) 20 Take 1 tablet 60 tablet 0 mg Tab tablet (20 mg total) 9 by mouth daily with dinner. Active Problems Problem Noted Date HTN (hypertension) chronic areterial 09/27/2018 Hypothyroid 09/27/2018 A-fib (HCC), Asymptomatic with RVR 09/27/2018 PRIYA (obstructive sleep apnea) (home CPAP broken x1yr) 09/27/2018 BPH (benign prostatic hyperplasia) (home Flowmax) 09/27/2018 Tricuspid valve regurgitation, mild to moderate 09/27/2018 Mild concentric left ventricular hypertrophy (LVH) 09/27/2018 Obesity, Class II, BMI 35-39.9 09/27/2018 CAD (coronary artery disease), [place] coronary artery 09/27/2018 Diverticulosis 09/27/2018 H/O Low testosterone 09/27/2018 Pre-diabetes 09/27/2018 Hypertensive urgency 09/27/2018 Acute respiratory insufficiency 09/27/2018 Aortic dissection / aneurysm, chronic type 3 dissection S/P TEVAR, [place] 09/21/2018 (Dr. Martínez, 09/27/2018) Encounters Care Team Description Date Type Specialty Ericka Diaz NP Chronic dissection of thoracic aorta (HCC) 10/26/2018 Hospital Radiology Encounter Ericka Diaz NP Chronic dissection of thoracic aorta (HCC) 10/26/2018 Hospital Radiology Encounter Ericka Diaz NP Chronic dissection of thoracic aorta (HCC) (Primary Dx) 10/04/2018 Orders Only Joshua Martínez MD REPAIR,TEVAR-THORACIC ENDOVASCULAR ANEURYSM 09/27/2018 Surgery Jorje Cardoza MD 09/27/2018 Anesthesia Event Baron Byers MD Brann, MD Rudy Hernández Jaime, MD Zalavarria, MD Tanya Bill Joseph Stapleton, MD Dissection of thoracic aorta (HCC); Acute respiratory insufficiency; Atrial fibrillation, unspecified type (HCC); Hypertensive urgency 09/21/2018 Hospital Cardiology - Encounter 10/01/2018 09/21/2018 Orders Only General Internal Medicine after 11/23/2017 Social History Date Tobacco Use Types Packs/Day Years Used Never Smoker Alcohol Use Drinks/Week oz/Week Comments No Alcohol Habits Answer Date Recorded How often do you have a drink containing alcohol? Never 09/21/2018 How many drinks containing alcohol do you have on Not asked a typical day when you are drinking? How often do you have six or more drinks on one Not asked occasion? Sex Assigned at Date Recorded Not on file Industry Job Start Date Occupation Not on file Not on file Not on file Travel End Travel History Travel Start No recent travel history available. Last Filed Vital Signs Time Taken Vital Sign Reading 10/01/2018 7:50 AM DIMENSIONAL INSPECTOR Blood Pressure 139/101 10/01/2018 7:50 AM DIMENSIONAL INSPECTOR Pulse 101 10/01/2018 7:50 AM DIMENSIONAL INSPECTOR Temperature 35.8 C (96.4 F) 10/01/2018 7:50 AM DIMENSIONAL INSPECTOR Respiratory Rate 20 10/01/2018 7:50 AM DIMENSIONAL INSPECTOR Oxygen Saturation 95% 10/01/2018 3:37 AM DIMENSIONAL INSPECTOR Inhaled Oxygen 30% Concentration 10/01/2018 7:50 AM DIMENSIONAL INSPECTOR Weight 96.9 kg (213 lb 9.6 oz) 09/22/2018 3:50 AM DIMENSIONAL INSPECTOR Height 162.6 cm (5' 4") 10/01/2018 7:50 AM DIMENSIONAL INSPECTOR Body Mass Index 36.66 Plan of Treatment Not on file Implants Device Identifier Shelf Expiration Date Model / Serial / Lot Implanted Type Area Manufactur er 07/02/2020 [id number] / / [id number] Closure Sys Perclose Progl 6fr Cardiovasc Left: Aorta BERNARD 08689-76 - [id number] ular LAB:VASC Implanted: Qty: 1 on 09/27/2018 by Joshua Zhou MD 07/02/2020 [id number] / / [id number] Closure Sys Perclose Progl 6fr Cardiovasc Left: Aorta BERNARD 40051-82 - [id number] ular LAB:VASC Implanted: Qty: 1 on 09/27/2018 by Joshua hZou MD 01/01/2020 [id number] / / [id number] Closure Sys Perclose Progl 6fr Cardiovasc Left: Aorta BERNARD 96529-43 - [id number] ular LAB:VASC Implanted: Qty: 1 on 09/27/2018 by Joshua Zhou MD 09/27/2018 [id number] / [id number] / Ascending Stent Graft N/A: Aorta GORE Implanted: Qty: 1 on 09/27/2018 by Joshua Martínez MD 08/24/2020 [id number] / [id number] / Ascending Stent Graft N/A: Aorta GORE Implanted: Qty: 1 on 09/27/2018 by Joshua Martínez MD Procedures Comments Procedure Name Priority Date/Time Associated Diagnosis RHYTHM STRIP - SCAN 11/09/2018 11:51 AM CDT POCT-CREATININE Routine 10/26/2018 8:[address]/CTA ABDOMEN & PELVIS Routine 10/26/2018 Chronic dissection of 8:15 AM CDT thoracic aorta (HCC) CT/CTA CHEST Routine 10/26/2018 Chronic dissection of 8:15 AM CDT thoracic aorta (HCC) VASCULAR DIAGRAM -SCAN 10/06/2018 1:21 PM DIMENSIONAL INSPECTOR RHYTHM STRIP - SCAN 10/06/2018 1:21 PM DIMENSIONAL INSPECTOR POCT-GLUCOSE METER Routine 10/01/2018 7:49 AM DIMENSIONAL INSPECTOR XR CHEST 1 VIEW Routine 10/01/2018 PORTABLE/BEDSIDE 7:48 AM DIMENSIONAL INSPECTOR PROTHROMBIN TIME/INR Routine 10/01/2018 5:33 AM DIMENSIONAL INSPECTOR APTT Routine 10/01/2018 5:33 AM DIMENSIONAL INSPECTOR PHOSPHORUS Routine 10/01/2018 3:35 AM DIMENSIONAL INSPECTOR MAGNESIUM Routine 10/01/2018 3:35 AM DIMENSIONAL INSPECTOR CBC (HEMOGRAM ONLY) Routine 10/01/2018 3:35 AM DIMENSIONAL INSPECTOR BASIC METABOLIC PANEL (7) Routine 10/01/2018 3:35 AM DIMENSIONAL INSPECTOR POCT-GLUCOSE METER Routine 09/30/2018 9:07 PM DIMENSIONAL INSPECTOR CTA CHEST,ABDOMEN & STAT 09/30/2018 PELVIS - FOR DISSECTION 8:30 PM DIMENSIONAL INSPECTOR POCT-GLUCOSE METER Routine 09/30/2018 5:01 PM DIMENSIONAL INSPECTOR POCT-GLUCOSE METER Routine 09/30/2018 12:26 PM DIMENSIONAL INSPECTOR POCT-GLUCOSE METER Routine 09/30/2018 7:10 AM DIMENSIONAL INSPECTOR XR CHEST 1 VIEW Routine 09/30/2018 PORTABLE/BEDSIDE 6:36 AM DIMENSIONAL INSPECTOR PROTHROMBIN TIME/INR Routine 09/30/2018 5:04 AM DIMENSIONAL INSPECTOR APTT Routine 09/30/2018 5:04 AM DIMENSIONAL INSPECTOR PHOSPHORUS Routine 09/30/2018 5:04 AM DIMENSIONAL INSPECTOR MAGNESIUM Routine 09/30/2018 5:04 AM DIMENSIONAL INSPECTOR CBC (HEMOGRAM ONLY) Routine 09/30/2018 5:04 AM DIMENSIONAL INSPECTOR BASIC METABOLIC PANEL (7) Routine 09/30/2018 5:04 AM DIMENSIONAL INSPECTOR POCT-GLUCOSE METER Routine 09/29/2018 9:44 PM DIMENSIONAL INSPECTOR POCT-GLUCOSE METER Routine 09/29/2018 5:07 PM DIMENSIONAL INSPECTOR POCT-GLUCOSE METER Routine 09/29/2018 11:46 AM DIMENSIONAL INSPECTOR POCT-GLUCOSE METER Routine 09/29/2018 8:01 AM DIMENSIONAL INSPECTOR XR CHEST 1 VIEW Routine 09/29/2018 PORTABLE/BEDSIDE 6:49 AM DIMENSIONAL INSPECTOR PROTHROMBIN TIME/INR Routine 09/29/2018 4:39 AM DIMENSIONAL INSPECTOR APTT Routine 09/29/2018 4:39 AM DIMENSIONAL INSPECTOR PHOSPHORUS Routine 09/29/2018 4:39 AM DIMENSIONAL INSPECTOR MAGNESIUM Routine 09/29/2018 4:39 AM DIMENSIONAL INSPECTOR CBC (HEMOGRAM ONLY) Routine 09/29/2018 4:39 AM DIMENSIONAL INSPECTOR BASIC METABOLIC PANEL (7) Routine 09/29/2018 4:39 AM DIMENSIONAL INSPECTOR POCT-GLUCOSE METER Routine 09/28/2018 9:09 PM DIMENSIONAL INSPECTOR XR CHEST 1 VIEW Routine 09/28/2018 PORTABLE/BEDSIDE 4:34 AM DIMENSIONAL INSPECTOR PROTHROMBIN TIME/INR Routine 09/28/2018 3:11 AM DIMENSIONAL INSPECTOR APTT Routine 09/28/2018 3:11 AM DIMENSIONAL INSPECTOR PHOSPHORUS Routine 09/28/2018 3:11 AM DIMENSIONAL INSPECTOR MAGNESIUM Routine 09/28/2018 3:11 AM DIMENSIONAL INSPECTOR CBC (HEMOGRAM ONLY) Routine 09/28/2018 3:11 AM DIMENSIONAL INSPECTOR BASIC METABOLIC PANEL (7) Routine 09/28/2018 3:11 AM DIMENSIONAL INSPECTOR MAGNESIUM Routine 09/27/2018 9:27 PM DIMENSIONAL INSPECTOR POTASSIUM Routine 09/27/2018 9:27 PM DIMENSIONAL INSPECTOR POCT-GLUCOSE METER Routine 09/27/2018 9:26 PM DIMENSIONAL INSPECTOR TRANSFUSION SERVICE 09/27/2018 REPORT - SCAN 6:00 PM DIMENSIONAL INSPECTOR XR CHEST 1 VIEW STAT 09/27/2018 PORTABLE/BEDSIDE 12:50 PM DIMENSIONAL INSPECTOR LACTIC ACID, ARTERIAL STAT 09/27/2018 11:50 AM DIMENSIONAL INSPECTOR PHOSPHORUS STAT 09/27/2018 11:50 AM DIMENSIONAL INSPECTOR MAGNESIUM STAT 09/27/2018 11:50 AM DIMENSIONAL INSPECTOR BASIC METABOLIC PANEL (7) STAT 09/27/2018 11:50 AM DIMENSIONAL INSPECTOR POCT-GLUCOSE METER Routine 09/27/2018 11:26 AM DIMENSIONAL INSPECTOR CBC W/PLT COUNT & AUTO STAT 09/27/2018 DIFFERENTIAL 11:23 AM DIMENSIONAL INSPECTOR CBC W/PLT COUNT & AUTO STAT 09/27/2018 DIFFERENTIAL 11:23 AM DIMENSIONAL INSPECTOR ANESTHESIA BILL Routine 09/27/2018 8:46 AM DIMENSIONAL INSPECTOR HGB/HCT (H&H) - STAT LAB STAT 09/27/2018 8:35 AM DIMENSIONAL INSPECTOR GLUCOSE-STAT LAB STAT 09/27/2018 8:35 AM DIMENSIONAL INSPECTOR POTASSIUM-STAT LAB STAT 09/27/2018 8:35 AM DIMENSIONAL INSPECTOR SODIUM NA-STAT LAB STAT 09/27/2018 8:35 AM DIMENSIONAL INSPECTOR BLOOD GAS, ARTERIAL STAT 09/27/2018 8:35 AM DIMENSIONAL INSPECTOR CALCIUM, IONIZED STAT 09/27/2018 8:35 AM DIMENSIONAL INSPECTOR RRL CRITICAL LABS STAT 09/27/2018 (ABG,NA,K,H&H,GLUCOSE) 8:35 AM DIMENSIONAL INSPECTOR BILL 09/27/2018 Dissecting aneurysm of 8:00 AM DIMENSIONAL INSPECTOR thoracic aorta, type 3 (HCC) Special Needs (BILL, GORE, REP: SAI LUZ PORTILLO) REPAIR,AATA (ANEURYSM 09/27/2018 Dissecting aneurysm of ASCENDING THORACIC AORTA) 8:00 AM DIMENSIONAL INSPECTOR thoracic aorta, type 3 (HCC) Special Needs (BILL, GORE, REP: SAI LUZ PORTILLO) REPAIR,TEVAR-THORACIC 09/27/2018 Dissecting aneurysm of ENDOVASCULAR ANEURYSM 8:00 AM DIMENSIONAL INSPECTOR thoracic aorta, type 3 (HCC) Special Needs (BILL, GORE, REP: SAI LUZ PORTILLO) POCT-ACT Routine 09/27/2018 7:22 AM DIMENSIONAL INSPECTOR POCT-ACT Routine 09/27/2018 7:01 AM DIMENSIONAL INSPECTOR CBC W/PLT COUNT & AUTO Routine 09/27/2018 DIFFERENTIAL 4:29 AM DIMENSIONAL INSPECTOR MAGNESIUM Routine 09/27/2018 4:29 AM DIMENSIONAL INSPECTOR BASIC METABOLIC PANEL (7) Routine 09/27/2018 4:29 AM DIMENSIONAL INSPECTOR CBC W/PLT COUNT & AUTO Routine 09/27/2018 DIFFERENTIAL 4:29 AM DIMENSIONAL INSPECTOR POCT-GLUCOSE METER Routine 09/26/2018 9:03 PM DIMENSIONAL INSPECTOR PREPARE RBC Routine 09/26/2018 7:54 PM DIMENSIONAL INSPECTOR TYPE AND SCREEN, Routine 09/26/2018 AUTOMATED 10:11 AM DIMENSIONAL INSPECTOR APTT Routine 09/26/2018 10:11 AM DIMENSIONAL INSPECTOR PROTHROMBIN TIME/INR Routine 09/26/2018 10:11 AM DIMENSIONAL INSPECTOR POCT-GLUCOSE METER Routine 09/26/2018 8:07 AM DIMENSIONAL INSPECTOR CBC W/PLT COUNT & AUTO Routine 09/26/2018 DIFFERENTIAL 4:18 AM DIMENSIONAL INSPECTOR MAGNESIUM Routine 09/26/2018 4:18 AM DIMENSIONAL INSPECTOR BASIC METABOLIC PANEL (7) Routine 09/26/2018 4:18 AM DIMENSIONAL INSPECTOR CBC W/PLT COUNT & AUTO Routine 09/26/2018 DIFFERENTIAL 4:18 AM DIMENSIONAL INSPECTOR POCT-GLUCOSE METER Routine 09/25/2018 9:12 PM DIMENSIONAL INSPECTOR POCT-GLUCOSE METER Routine 09/25/2018 5:43 PM DIMENSIONAL INSPECTOR POCT-GLUCOSE METER Routine 09/25/2018 3:21 PM DIMENSIONAL INSPECTOR POCT-GLUCOSE METER Routine 09/25/2018 9:42 AM DIMENSIONAL INSPECTOR POCT-GLUCOSE METER Routine 09/24/2018 11:35 PM DIMENSIONAL INSPECTOR POCT-GLUCOSE METER Routine 09/24/2018 11:42 AM DIMENSIONAL INSPECTOR POCT-GLUCOSE METER Routine 09/24/2018 8:04 AM DIMENSIONAL INSPECTOR CBC W/PLT COUNT & AUTO Routine 09/24/2018 DIFFERENTIAL 2:50 AM DIMENSIONAL INSPECTOR MAGNESIUM Routine 09/24/2018 2:50 AM DIMENSIONAL INSPECTOR BASIC METABOLIC PANEL (7) Routine 09/24/2018 2:50 AM DIMENSIONAL INSPECTOR CBC W/PLT COUNT & AUTO Routine 09/24/2018 DIFFERENTIAL 2:50 AM DIMENSIONAL INSPECTOR POCT-GLUCOSE METER Routine 09/23/2018 9:20 PM DIMENSIONAL INSPECTOR POCT-GLUCOSE METER Routine 09/23/2018 6:57 PM DIMENSIONAL INSPECTOR TRANSFUSION SERVICE 09/23/2018 REPORT - SCAN 6:02 PM DIMENSIONAL INSPECTOR CBC W/PLT COUNT & AUTO Routine 09/23/2018 DIFFERENTIAL 4:32 AM DIMENSIONAL INSPECTOR PHOSPHORUS Routine 09/23/2018 4:32 AM DIMENSIONAL INSPECTOR MAGNESIUM Routine 09/23/2018 4:32 AM DIMENSIONAL INSPECTOR BASIC METABOLIC PANEL (7) Routine 09/23/2018 4:32 AM DIMENSIONAL INSPECTOR CBC W/PLT COUNT & AUTO Routine 09/23/2018 DIFFERENTIAL 4:32 AM DIMENSIONAL INSPECTOR LIPID PANEL Routine 09/23/2018 4:32 AM DIMENSIONAL INSPECTOR POCT-GLUCOSE METER Routine 09/22/2018 11:33 PM DIMENSIONAL INSPECTOR POCT-GLUCOSE METER Routine 09/22/2018 8:03 PM DIMENSIONAL INSPECTOR ARTERIAL DOPPLER LEGS ILEANA 09/22/2018 BILATERAL 12:48 PM DIMENSIONAL INSPECTOR CAROTID DOPPLER BILATERAL ILEANA 09/22/2018 12:48 PM DIMENSIONAL INSPECTOR PLATELET AGGREGATION: Routine 09/22/2018 FUNCTION SCREEN 12:16 PM DIMENSIONAL INSPECTOR XR CHEST 1 VIEW ILEANA 09/22/2018 PORTABLE/BEDSIDE 12:00 PM DIMENSIONAL INSPECTOR CTA CHEST,ABDOMEN & STAT 09/22/2018 PELVIS - FOR DISSECTION 2:40 AM DIMENSIONAL INSPECTOR ABORH, MANUAL STAT 09/22/2018 1:22 AM DIMENSIONAL INSPECTOR CBC W/PLT COUNT & AUTO Routine 09/22/2018 DIFFERENTIAL 12:55 AM DIMENSIONAL INSPECTOR TYPE AND SCREEN, Routine 09/22/2018 AUTOMATED 12:55 AM DIMENSIONAL INSPECTOR HEMOGLOBIN A1C Routine 09/22/2018 12:55 AM DIMENSIONAL INSPECTOR TSH/FREE T4 IF INDICATED Routine 09/22/2018 12:55 AM DIMENSIONAL INSPECTOR PROTHROMBIN TIME/INR Routine 09/22/2018 12:55 AM DIMENSIONAL INSPECTOR COMPREHENSIVE METABOLIC Routine 09/22/2018 PANEL 12:55 AM DIMENSIONAL INSPECTOR CBC W/PLT COUNT & AUTO Routine 09/22/2018 DIFFERENTIAL 12:55 AM DIMENSIONAL INSPECTOR THROMBOELASTOGRAPH (TEG) Routine 09/22/2018 12:55 AM DIMENSIONAL INSPECTOR 2D ECHO W/ DOPPLER STAT(After 09/21/2018 (CW/PW/COLOR) Hours 11:28 PM DIMENSIONAL INSPECTOR Page Staff) ECG 12-LEAD Routine 09/21/2018 10:54 PM DIMENSIONAL INSPECTOR ECG 12-LEAD Routine 09/21/2018 10:54 PM DIMENSIONAL INSPECTOR Procedure Note - Interface, External Ris In - 09/21/2018 10:58 PM DIMENSIONAL INSPECTOR Ventricula r Rate 111 BPM Atrial Rate 131 BPM QRS Duration 82 ms Q-T Interval 344 ms QTC Calculatio n(Bazett) 467 ms R [place] -34 degrees T [place] -72 degrees Atrial fibrillati on with rapid ventricula r response Left axis deviation Abnormal ECG When compared with ECG of 9 22:44, No significan t change was found ECG 12-LEAD Routine 09/21/2018 10:44 PM DIMENSIONAL INSPECTOR Procedure Note - Interface, External Ris In - 09/21/2018 10:57 PM DIMENSIONAL INSPECTOR Ventricula r Rate 104 BPM Atrial Rate 119 BPM QRS Duration 86 ms Q-T Interval 338 ms QTC Calculatio n(Bazett) 444 ms R [place] 26 degrees T [place] -32 degrees Atrial fibrillati on with rapid ventricula r response with premature ventricula r or aberrantly conducted complexes Abnormal ECG No previous ECGs available ECG 12-LEAD STAT 09/21/2018 10:44 PM DIMENSIONAL INSPECTOR after 11/23/2017 Results * RHYTHM STRIP - SCAN (11/09/2018 11:51 AM CDT) Only the most recent of 2 results within the time period is included. Narrative Performed At * POC-Creatinine (10/26/2018 8:41 AM CDT) POC-Creatinine 1.1Comment: TESTED AT [facility] 0.6 - 1.3 mg/dL [address] POC-EGFR 65 mL/min/1.73M2 [facility] Specimen Blood Performing Organization Address City/State/Zipcode Phone Number [address] [address] [facility] * CTA chest (10/26/2018 8:15 AM CDT) Specimen Narrative Performed At Addendum Begins GE RIS REPORT STATUS:A Addendum: A few prominent, borderline enlarged nonspecific lymph nodes are noted in the mediastinum. Follow-up in the the next 6-12 months is suggested. Mild interstitial lung disease, unchanged from prior study. Small 1 cm hyperdense cyst in the midportion the right kidney without definite enhancement, likely benign. Signed: Wes Guerra MD Report Verified Date/Time:10/26/2018 19:05:26 Reading Location: [place] [address] Angio Body Reading Room Addendum Ends FINAL REPORT CT angiography of the thoracoabdominal aorta and pelvic arteries, 26 October 2018 INDICATION: This is a 77 year old male with history of aortic dissection, post endostent placement, KHALIDA, presents for follow-up assessment.This study is performed in an attempt to avoid an invasive procedure. TECHNIQUE: Spiral acquisition before and during intravenous contrast administration using a Holly multidetector CT scanner. Images were obtained before and during the dynamic passage of intravenous contrast material.Multi-planar 3-D volume-rendering reconstruction was performed using an independent workstation interactively by the interpreting physician as well as the 3-D specialist for optimal visualization of the thoracoabdominal aorta, the pelvic arteries as well as its proximal branches. Please refer to the contrast sheet scanned in the EPIC system for the amount and route of contrast given. Patient has variable heart rate, therefore the data was acquired during systole. This exam was performed according to our departmental dose-optimisation programme, which includes automated exposure control, adjustment of the mA and/or kV according to patient size and/or use of iterative reconstruction technique. Dose modulation, iterative reconstruction, and/or weight based adjustment of the mA/kV was utilized to reduce the radiation dose to as low as reasonably achievable. FINDINGS: VASCULAR: The central pulmonary artery is normal in calibre. The cardiac chambers demonstrate normal atrioventricular and ventriculoarterial concordance, and systemic and pulmonary venous return. The left ventricle is normal in size. Left and right atrial enlargement is identified, right greater than left. Correlate with appropriate etiology. In addition, there also appears to be right ventricular prominence. Again correlate with appropriate etiology. Coronary artery origins are normal and scattered calcifications seen in the proximal LAD. The aortic root is [place]. Similar to prior examination, an endostent is placed, starting at the sinotubular junction, extending through the entire ascending thoracic aorta, and terminates before the takeoff of the innominate artery. Please refer to the snapshot regarding the location of the most proximal margin of the stent, that is essentially unchanged when compared to prior examination. The most proximal margin of the endostent is away from the takeoff of the coronary arteries. The endostent is well-positioned. However, at image, 314, thin linear contrast is seen outside the stent, inside aorta, not present in the precontrast series indicating endoleak, in the anterior aspect of the descending aorta. Retrospectively, this was present in prior examination one month ago. There is no evidence of type I endoleak and the proximal margin is well opposed to the aortic wall. Therefore this would represent a small type III endoleak with no progression when compared to prior examination. Thereafter, the transverse arch, descending thoracic aorta and abdominal aorta is [place] with no dissection identified. Arch vessel branching pattern is normal and the visualised arch vessels are seen to be widely patent proximally. The innominate artery is somewhat tortuous distally and some mild atherosclerosis identified in the left subclavian artery. In addition, tiny nonocclusive thrombus is identified in the right IJ, at image 122. The coeliac axis, SMA, STEVEN are widely patent. Replaced right hepatic artery is identified. Single left and right renal arteries are seen that are widely patent. In addition, tiny accessory left renal artery is seen, arising superiorly, supplying the upper pole of the left kidney. Single left and right renal veins are seen draining normally into the IVC. The common iliac, external iliac, common femoral, and the visualised superficial femoral arteries, bilaterally, are widely patent. Mild prominence is noted in the right common iliac artery, approximate 1.7 cm in diameter where the corresponding left common iliac artery measures only 1.4 cm. continued follow-up can be made future examination. Quantitative dimensions of the aorta are as follows: 3.7 x 3.7 cm at the sinuses of Valsalva (the sino-tubular junction is preserved); 3.9 x 3.8 cm at the proximal ascending thoracic aorta; 6.4 x 5.8cm at the mid ascending aorta; 3.8cm at the distal ascending aorta; 3.3 cm at the mid transverse arch; 3.0 cm at the proximal descending aorta; 2.9 cm at the mid descending aorta; 2.7 cm at the diaphragmatic hiatus. In the abdomen,the aorta measures2.4 cm at the mesenteric segment; 2.0cm at the renal segment,; and 2.0 cm at the aortic bifurcation. NON-VASCULAR: The visualised thyroid gland appears unremarkable. The chest wall and mediastinum has no acute abnormalities identified. There are some lymph nodes identified especially in the right hilum, and also in the subcarinal region. There are approximately 11 to 12 mm in diameter, could be reactive in nature. In any case, patient would have further CT scan performed in the future and continued follow-up can be made in future examination document stability. In the lung windows, no endobronchial lesion is seen, and no pleural effusion is identified. In the lung windows, prior dictation indicated the presence of chronic interstitial lung disease, with groundglass opacities and interlobar septal thickening. Similar finding is seen in prior examination one month ago. An addendum will be dictated thereafter, if needed. Overall, there is no suspicious pulmonary nodule is identified. In the abdomen, the liver and spleen appears unremarkable. The liver edge is smooth. No abnormal enhancing structure is identified. Incidental note, the IVC and the visualised hepatic veins are prominent, consistent with right atrial and right ventricular enlargement. Correlate clinically. The pancreas, bladder, and adrenal glands are unremarkable. No acute renal pathology is seen and no hydronephrosis or perirenal fluid collections identified. However, bilateral cortical scarring is noted. There are hypodensities identified in both kidneys, with no enhancement after contrast administration suggesting simple cyst. In addition, there is also a hyperdense cyst identified in the left kidney, at image 664 in the precontrast series,suggesting a tiny proteinaceous/hemorrhagic cyst. Bowel is not well assessed by CT angiography as enteric contrast is not given. No obvious bowel dilation is identified. Scattered colonic diverticulum is noted. Bilateral fat-containing inguinal hernia seen left greater than right. The prostate gland is prominent with punctate calcification identified. The bladder appears unremarkable. No free air or free fluid seen abdomen and pelvis and no significant retroperitoneal adenopathy is identified. In the bony windows, no acute bony pathology is seen, though some degenerative changes are noted. Sclerotic focus identified in the right ilium, at image 1035 indicating small bone island, no difference to prior examination. CONCLUSIONS: 1.Patient is post stenting for aortic dissection, with a [place] stent. The stent arising from the sinotubular junction extending to the most distal ascending thoracic aorta. The stent is well-positioned and no type I endoleak is identified. However, thin linear rim of contrast seen anterior to the stent, at the mid ascending aortic level, at image 313, retrospectively, already been present in prior examination. 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 Thereafter, the transverse arch, descending thoracic aorta, in the abdominal aorta is unremarkable. No dissection is identified. Quantitative dimensions of the thoracoabdominal aorta as described above. 2.Mild coronary atherosclerosis. 3.The right-sided cardiac chambers are dilated. Correlate appropriate etiology. Note the central pulmonary artery is normal in caliber. 4.Pulmonary findings as described above, essentially unchanged when compared to prior examination. No evidence of central pulmonary artery embolism. Other findings described above. 5.Tiny nonocclusive venous thrombus identified in the right IJ as described above. 6.An addendum will be dictated by the Defense Analyst Radiologist regarding the nonvascular findings. Signed: Micah Fan MD Report Verified Date/Time:10/26/2018 12:09:10 Reading Location: [facility] P047 Cardiology MRI Procedure Note Interface, External Ris In - 10/26/2018 7:07 PM CDT Addendum Begins REPORT STATUS:A Addendum: A few prominent, borderline enlarged nonspecific lymph nodes are noted in the mediastinum. Follow-up in the the next 6-12 months is suggested. Mild interstitial lung disease, unchanged from prior study. Small 1 cm hyperdense cyst in the midportion the right kidney without definite enhancement, likely benign. Signed: Wes Guerra MD Report Verified Date/Time: 10/26/2018 19:05:26 Reading Location: [place] [id number] Angio Body Reading Room Addendum Ends FINAL REPORT CT angiography of the thoracoabdominal aorta and pelvic arteries, 26 October 2018 INDICATION: This is a 77 year old male with history of aortic dissection, post endostent placement, [place]OR[place], presents for follow-up assessment. This study is performed in an attempt to avoid an invasive procedure. TECHNIQUE: Spiral acquisition before and during intravenous contrast administration using a Holly multidetector CT scanner. Images were obtained before and during the dynamic passage of intravenous contrast material. Multi-planar 3-D volume-rendering reconstruction was performed using an independent workstation interactively by the interpreting physician as well as the 3-D specialist for optimal visualization of the thoracoabdominal aorta, the pelvic arteries as well as its proximal branches. Please refer to the contrast sheet scanned in the EPIC system for the amount and route of contrast given. Patient has variable heart rate, therefore the data was acquired during systole. This exam was performed according to our departmental dose-optimisation programme, which includes automated exposure control, adjustment of the mA and/or kV according to patient size and/or use of iterative reconstruction technique. Dose modulation, iterative reconstruction, and/or weight based adjustment of the mA/kV was utilized to reduce the radiation dose to as low as reasonably achievable. FINDINGS: VASCULAR: The central pulmonary artery is normal in calibre. The cardiac chambers demonstrate normal atrioventricular and ventriculoarterial concordance, and systemic and pulmonary venous return. The left ventricle is normal in size. Left and right atrial enlargement is identified, right greater than left. Correlate with appropriate etiology. In addition, there also appears to be right ventricular prominence. Again correlate with appropriate etiology. Coronary artery origins are normal and scattered calcifications seen in the proximal LAD. The aortic root is [place]. Similar to prior examination, an endostent is placed, starting at the sinotubular junction, extending through the entire ascending thoracic aorta, and terminates before the takeoff of the innominate artery. Please refer to the snapshot regarding the location of the most proximal margin of the stent, that is essentially unchanged when compared to prior examination. The most proximal margin of the endostent is away from the takeoff of the coronary arteries. The endostent is well-positioned. However, at image, 314, thin linear contrast is seen outside the stent, inside aorta, not present in the precontrast series indicating endoleak, in the anterior aspect of the descending aorta. Retrospectively, this was present in prior examination one month ago. There is no evidence of type I endoleak and the proximal margin is well opposed to the aortic wall. Therefore this would represent a small type III endoleak with no progression when compared to prior examination. Thereafter, the transverse arch, descending thoracic aorta and abdominal aorta is [place] with no dissection identified. Arch vessel branching pattern is normal and the visualised arch vessels are seen to be widely patent proximally. The innominate artery is somewhat tortuous distally and some mild atherosclerosis identified in the left subclavian artery. In addition, tiny nonocclusive thrombus is identified in the right IJ, at image 122. The coeliac axis, SMA, STEVEN are widely patent. Replaced right hepatic artery is identified. Single left and right renal arteries are seen that are widely patent. In addition, tiny accessory left renal artery is seen, arising superiorly, supplying the upper pole of the left kidney. Single left and right renal veins are seen draining normally into the IVC. The common iliac, external iliac, common femoral, and the visualised superficial femoral arteries, bilaterally, are widely patent. Mild prominence is noted in the right common iliac artery, approximate 1.7 cm in diameter where the corresponding left common iliac artery measures only 1.4 cm. continued follow-up can be made future examination. Quantitative dimensions of the aorta are as follows: 3.7 x 3.7 cm at the sinuses of Valsalva (the sino-tubular junction is preserved); 3.9 x 3.8 cm at the proximal ascending thoracic aorta; 6.4 x 5.8 cm at the mid ascending aorta; 3.8 cm at the distal ascending aorta; 3.3 cm at the mid transverse arch; 3.0 cm at the proximal descending aorta; 2.9 cm at the mid descending aorta; 2.7 cm at the diaphragmatic hiatus. In the abdomen, the aorta measures 2.4 cm at the mesenteric segment; 2.0 cm at the renal segment,; and 2.0 cm at the aortic bifurcation. NON-VASCULAR: The visualised thyroid gland appears unremarkable. The chest wall and mediastinum has no acute abnormalities identified. There are some lymph nodes identified especially in the right hilum, and also in the subcarinal region. There are approximately 11 to 12 mm in diameter, could be reactive in nature. In any case, patient would have further CT scan performed in the future and continued follow-up can be made in future examination document stability. In the lung windows, no endobronchial lesion is seen, and no pleural effusion is identified. In the lung windows, prior dictation indicated the presence of chronic interstitial lung disease, with groundglass opacities and interlobar septal thickening. Similar finding is seen in prior examination one month ago. An addendum will be dictated thereafter, if needed. Overall, there is no suspicious pulmonary nodule is identified. In the abdomen, the liver and spleen appears unremarkable. The liver edge is smooth. No abnormal enhancing structure is identified. Incidental note, the IVC and the visualised hepatic veins are prominent, consistent with right atrial and right ventricular enlargement. Correlate clinically. The pancreas, bladder, and adrenal glands are unremarkable. No acute renal pathology is seen and no hydronephrosis or perirenal fluid collections identified. However, bilateral cortical scarring is noted. There are hypodensities identified in both kidneys, with no enhancement after contrast administration suggesting simple cyst. In addition, there is also a hyperdense cyst identified in the left kidney, at image 664 in the precontrast series, suggesting a tiny proteinaceous/hemorrhagic cyst. Bowel is not well assessed by CT angiography as enteric contrast is not given. No obvious bowel dilation is identified. Scattered colonic diverticulum is noted. Bilateral fat-containing inguinal hernia seen left greater than right. The prostate gland is prominent with punctate calcification identified. The bladder appears unremarkable. No free air or free fluid seen abdomen and pelvis and no significant retroperitoneal adenopathy is identified. In the bony windows, no acute bony pathology is seen, though some degenerative changes are noted. Sclerotic focus identified in the right ilium, at image 1035 indicating small bone island, no difference to prior examination. CONCLUSIONS: 1. Patient is post stenting for aortic dissection, with a [place] stent. The stent arising from the sinotubular junction extending to the most distal ascending thoracic aorta. The stent is well-positioned and no type I endoleak is identified. However, thin linear rim of contrast seen anterior to the stent, at the mid ascending aortic level, at image 313, retrospectively, already been present in prior examination. 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 Thereafter, the transverse arch, descending thoracic aorta, in the abdominal aorta is unremarkable. No dissection is identified. Quantitative dimensions of the thoracoabdominal aorta as described above. 2. Mild coronary atherosclerosis. 3. The right-sided cardiac chambers are dilated. Correlate appropriate etiology. Note the central pulmonary artery is normal in caliber. 4. Pulmonary findings as described above, essentially unchanged when compared to prior examination. No evidence of central pulmonary artery embolism. Other findings described above. 5. Tiny nonocclusive venous thrombus identified in the right IJ as described above. 6. An addendum will be dictated by the Defense Analyst Radiologist regarding the nonvascular findings. Signed: Micah Fan MD Report Verified Date/Time: 10/26/2018 12:09:10 Reading Location: [place] [id number] Cardiology MRI Performing Organization Address City/State/Zipcode Phone Number [email or web address] * CTA abdomen & pelvis (10/26/2018 8:15 AM CDT) Specimen Narrative Performed At Addendum Begins [facility] REPORT STATUS:A Addendum: A few prominent, borderline enlarged nonspecific lymph nodes are noted in the mediastinum. Follow-up in the the next 6-12 months is suggested. Mild interstitial lung disease, unchanged from prior study. Small 1 cm hyperdense cyst in the midportion the right kidney without definite enhancement, likely benign. Signed: Wes Guerra MD Report Verified Date/Time:10/26/2018 19:05:26 Reading Location: [facility] P048 Angio Body Reading Room Addendum Ends FINAL REPORT CT angiography of the thoracoabdominal aorta and pelvic arteries, 26 October 2018 INDICATION: This is a 77 year old male with history of aortic dissection, post endostent placement, KHALIDA, presents for follow-up assessment.This study is performed in an attempt to avoid an invasive procedure. TECHNIQUE: Spiral acquisition before and during intravenous contrast administration using a Holly multidetector CT scanner. Images were obtained before and during the dynamic passage of intravenous contrast material.Multi-planar 3-D volume-rendering reconstruction was performed using an independent workstation interactively by the interpreting physician as well as the 3-D specialist for optimal visualization of the thoracoabdominal aorta, the pelvic arteries as well as its proximal branches. Please refer to the contrast sheet scanned in the EPIC system for the amount and route of contrast given. Patient has variable heart rate, therefore the data was acquired during systole. This exam was performed according to our departmental dose-optimisation programme, which includes automated exposure control, adjustment of the mA and/or kV according to patient size and/or use of iterative reconstruction technique. Dose modulation, iterative reconstruction, and/or weight based adjustment of the mA/kV was utilized to reduce the radiation dose to as low as reasonably achievable. FINDINGS: VASCULAR: The central pulmonary artery is normal in calibre. The cardiac chambers demonstrate normal atrioventricular and ventriculoarterial concordance, and systemic and pulmonary venous return. The left ventricle is normal in size. Left and right atrial enlargement is identified, right greater than left. Correlate with appropriate etiology. In addition, there also appears to be right ventricular prominence. Again correlate with appropriate etiology. Coronary artery origins are normal and scattered calcifications seen in the proximal LAD. The aortic root is [place]. Similar to prior examination, an endostent is placed, starting at the sinotubular junction, extending through the entire ascending thoracic aorta, and terminates before the takeoff of the innominate artery. Please refer to the snapshot regarding the location of the most proximal margin of the stent, that is essentially unchanged when compared to prior examination. The most proximal margin of the endostent is away from the takeoff of the coronary arteries. The endostent is well-positioned. However, at image, 314, thin linear contrast is seen outside the stent, inside aorta, not present in the precontrast series indicating endoleak, in the anterior aspect of the descending aorta. Retrospectively, this was present in prior examination one month ago. There is no evidence of type I endoleak and the proximal margin is well opposed to the aortic wall. Therefore this would represent a small type III endoleak with no progression when compared to prior examination. Thereafter, the transverse arch, descending thoracic aorta and abdominal aorta is [place] with no dissection identified. Arch vessel branching pattern is normal and the visualised arch vessels are seen to be widely patent proximally. The innominate artery is somewhat tortuous distally and some mild atherosclerosis identified in the left subclavian artery. In addition, tiny nonocclusive thrombus is identified in the right IJ, at image 122. The coeliac axis, SMA, STEVEN are widely patent. Replaced right hepatic artery is identified. Single left and right renal arteries are seen that are widely patent. In addition, tiny accessory left renal artery is seen, arising superiorly, supplying the upper pole of the left kidney. Single left and right renal veins are seen draining normally into the IVC. The common iliac, external iliac, common femoral, and the visualised superficial femoral arteries, bilaterally, are widely patent. Mild prominence is noted in the right common iliac artery, approximate 1.7 cm in diameter where the corresponding left common iliac artery measures only 1.4 cm. continued follow-up can be made future examination. Quantitative dimensions of the aorta are as follows: 3.7 x 3.7 cm at the sinuses of Valsalva (the sino-tubular junction is preserved); 3.9 x 3.8 cm at the proximal ascending thoracic aorta; 6.4 x 5.8cm at the mid ascending aorta; 3.8cm at the distal ascending aorta; 3.3 cm at the mid transverse arch; 3.0 cm at the proximal descending aorta; 2.9 cm at the mid descending aorta; 2.7 cm at the diaphragmatic hiatus. In the abdomen,the aorta measures2.4 cm at the mesenteric segment; 2.0cm at the renal segment,; and 2.0 cm at the aortic bifurcation. NON-VASCULAR: The visualised thyroid gland appears unremarkable. The chest wall and mediastinum has no acute abnormalities identified. There are some lymph nodes identified especially in the right hilum, and also in the subcarinal region. There are approximately 11 to 12 mm in diameter, could be reactive in nature. In any case, patient would have further CT scan performed in the future and continued follow-up can be made in future examination document stability. In the lung windows, no endobronchial lesion is seen, and no pleural effusion is identified. In the lung windows, prior dictation indicated the presence of chronic interstitial lung disease, with groundglass opacities and interlobar septal thickening. Similar finding is seen in prior examination one month ago. An addendum will be dictated thereafter, if needed. Overall, there is no suspicious pulmonary nodule is identified. In the abdomen, the liver and spleen appears unremarkable. The liver edge is smooth. No abnormal enhancing structure is identified. Incidental note, the IVC and the visualised hepatic veins are prominent, consistent with right atrial and right ventricular enlargement. Correlate clinically. The pancreas, bladder, and adrenal glands are unremarkable. No acute renal pathology is seen and no hydronephrosis or perirenal fluid collections identified. However, bilateral cortical scarring is noted. There are hypodensities identified in both kidneys, with no enhancement after contrast administration suggesting simple cyst. In addition, there is also a hyperdense cyst identified in the left kidney, at image 664 in the precontrast series,suggesting a tiny proteinaceous/hemorrhagic cyst. Bowel is not well assessed by CT angiography as enteric contrast is not given. No obvious bowel dilation is identified. Scattered colonic diverticulum is noted. Bilateral fat-containing inguinal hernia seen left greater than right. The prostate gland is prominent with punctate calcification identified. The bladder appears unremarkable. No free air or free fluid seen abdomen and pelvis and no significant retroperitoneal adenopathy is identified. In the bony windows, no acute bony pathology is seen, though some degenerative changes are noted. Sclerotic focus identified in the right ilium, at image 1035 indicating small bone island, no difference to prior examination. CONCLUSIONS: 1.Patient is post stenting for aortic dissection, with a [place] stent. The stent arising from the sinotubular junction extending to the most distal ascending thoracic aorta. The stent is well-positioned and no type I endoleak is identified. However, thin linear rim of contrast seen anterior to the stent, at the mid ascending aortic level, at image 313, retrospectively, already been present in prior examination. 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 Thereafter, the transverse arch, descending thoracic aorta, in the abdominal aorta is unremarkable. No dissection is identified. Quantitative dimensions of the thoracoabdominal aorta as described above. 2.Mild coronary atherosclerosis. 3.The right-sided cardiac chambers are dilated. Correlate appropriate etiology. Note the central pulmonary artery is normal in caliber. 4.Pulmonary findings as described above, essentially unchanged when compared to prior examination. No evidence of central pulmonary artery embolism. Other findings described above. 5.Tiny nonocclusive venous thrombus identified in the right IJ as described above. 6.An addendum will be dictated by the Defense Analyst Radiologist regarding the nonvascular findings. Signed: Micah Fan MD Report Verified Date/Time:10/26/2018 12:09:10 Reading Location: [place] [id number] Cardiology MRI Procedure Note Interface, External Ris In - 10/26/2018 7:07 PM CDT Addendum Begins REPORT STATUS:A Addendum: A few prominent, borderline enlarged nonspecific lymph nodes are noted in the mediastinum. Follow-up in the the next 6-12 months is suggested. Mild interstitial lung disease, unchanged from prior study. Small 1 cm hyperdense cyst in the midportion the right kidney without definite enhancement, likely benign. Signed: Wes Guerra MD Report Verified Date/Time: 10/26/2018 19:05:26 Reading Location: [place] [id number] Angio Body Reading Room Addendum Ends FINAL REPORT CT angiography of the thoracoabdominal aorta and pelvic arteries, 26 October 2018 INDICATION: This is a 77 year old male with history of aortic dissection, post endostent placement, KHALIDA, presents for follow-up assessment. This study is performed in an attempt to avoid an invasive procedure. TECHNIQUE: Spiral acquisition before and during intravenous contrast administration using a Holly multidetector CT scanner. Images were obtained before and during the dynamic passage of intravenous contrast material. Multi-planar 3-D volume-rendering reconstruction was performed using an independent workstation interactively by the interpreting physician as well as the 3-D specialist for optimal visualization of the thoracoabdominal aorta, the pelvic arteries as well as its proximal branches. Please refer to the contrast sheet scanned in the EPIC system for the amount and route of contrast given. Patient has variable heart rate, therefore the data was acquired during systole. This exam was performed according to our departmental dose-optimisation programme, which includes automated exposure control, adjustment of the mA and/or kV according to patient size and/or use of iterative reconstruction technique. Dose modulation, iterative reconstruction, and/or weight based adjustment of the mA/kV was utilized to reduce the radiation dose to as low as reasonably achievable. FINDINGS: VASCULAR: The central pulmonary artery is normal in calibre. The cardiac chambers demonstrate normal atrioventricular and ventriculoarterial concordance, and systemic and pulmonary venous return. The left ventricle is normal in size. Left and right atrial enlargement is identified, right greater than left. Correlate with appropriate etiology. In addition, there also appears to be right ventricular prominence. Again correlate with appropriate etiology. Coronary artery origins are normal and scattered calcifications seen in the proximal LAD. The aortic root is [place]. Similar to prior examination, an endostent is placed, starting at the sinotubular junction, extending through the entire ascending thoracic aorta, and terminates before the takeoff of the innominate artery. Please refer to the snapshot regarding the location of the most proximal margin of the stent, that is essentially unchanged when compared to prior examination. The most proximal margin of the endostent is away from the takeoff of the coronary arteries. The endostent is well-positioned. However, at image, 314, thin linear contrast is seen outside the stent, inside aorta, not present in the precontrast series indicating endoleak, in the anterior aspect of the descending aorta. Retrospectively, this was present in prior examination one month ago. There is no evidence of type I endoleak and the proximal margin is well opposed to the aortic wall. Therefore this would represent a small type III endoleak with no progression when compared to prior examination. Thereafter, the transverse arch, descending thoracic aorta and abdominal aorta is [place] with no dissection identified. Arch vessel branching pattern is normal and the visualised arch vessels are seen to be widely patent proximally. The innominate artery is somewhat tortuous distally and some mild atherosclerosis identified in the left subclavian artery. In addition, tiny nonocclusive thrombus is identified in the right IJ, at image 122. The coeliac axis, SMA, STEVEN are widely patent. Replaced right hepatic artery is identified. Single left and right renal arteries are seen that are widely patent. In addition, tiny accessory left renal artery is seen, arising superiorly, supplying the upper pole of the left kidney. Single left and right renal veins are seen draining normally into the IVC. The common iliac, external iliac, common femoral, and the visualised superficial femoral arteries, bilaterally, are widely patent. Mild prominence is noted in the right common iliac artery, approximate 1.7 cm in diameter where the corresponding left common iliac artery measures only 1.4 cm. continued follow-up can be made future examination. Quantitative dimensions of the aorta are as follows: 3.7 x 3.7 cm at the sinuses of Valsalva (the sino-tubular junction is preserved); 3.9 x 3.8 cm at the proximal ascending thoracic aorta; 6.4 x 5.8 cm at the mid ascending aorta; 3.8 cm at the distal ascending aorta; 3.3 cm at the mid transverse arch; 3.0 cm at the proximal descending aorta; 2.9 cm at the mid descending aorta; 2.7 cm at the diaphragmatic hiatus. In the abdomen, the aorta measures 2.4 cm at the mesenteric segment; 2.0 cm at the renal segment,; and 2.0 cm at the aortic bifurcation. NON-VASCULAR: The visualised thyroid gland appears unremarkable. The chest wall and mediastinum has no acute abnormalities identified. There are some lymph nodes identified especially in the right hilum, and also in the subcarinal region. There are approximately 11 to 12 mm in diameter, could be reactive in nature. In any case, patient would have further CT scan performed in the future and continued follow-up can be made in future examination document stability. In the lung windows, no endobronchial lesion is seen, and no pleural effusion is identified. In the lung windows, prior dictation indicated the presence of chronic interstitial lung disease, with groundglass opacities and interlobar septal thickening. Similar finding is seen in prior examination one month ago. An addendum will be dictated thereafter, if needed. Overall, there is no suspicious pulmonary nodule is identified. In the abdomen, the liver and spleen appears unremarkable. The liver edge is smooth. No abnormal enhancing structure is identified. Incidental note, the IVC and the visualised hepatic veins are prominent, consistent with right atrial and right ventricular enlargement. Correlate clinically. The pancreas, bladder, and adrenal glands are unremarkable. No acute renal pathology is seen and no hydronephrosis or perirenal fluid collections identified. However, bilateral cortical scarring is noted. There are hypodensities identified in both kidneys, with no enhancement after contrast administration suggesting simple cyst. In addition, there is also a hyperdense cyst identified in the left kidney, at image 664 in the precontrast series, suggesting a tiny proteinaceous/hemorrhagic cyst. Bowel is not well assessed by CT angiography as enteric contrast is not given. No obvious bowel dilation is identified. Scattered colonic diverticulum is noted. Bilateral fat-containing inguinal hernia seen left greater than right. The prostate gland is prominent with punctate calcification identified. The bladder appears unremarkable. No free air or free fluid seen abdomen and pelvis and no significant retroperitoneal adenopathy is identified. In the bony windows, no acute bony pathology is seen, though some degenerative changes are noted. Sclerotic focus identified in the right ilium, at image 1035 indicating small bone island, no difference to prior examination. CONCLUSIONS: 1. Patient is post stenting for aortic dissection, with a Maplecrest stent. The stent arising from the sinotubular junction extending to the most distal ascending thoracic aorta. The stent is well-positioned and no type I endoleak is identified. However, thin linear rim of contrast seen anterior to the stent, at the mid ascending aortic level, at image 313, retrospectively, already been present in prior examination. 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 Thereafter, the transverse arch, descending thoracic aorta, in the abdominal aorta is unremarkable. No dissection is identified. Quantitative dimensions of the thoracoabdominal aorta as described above. 2. Mild coronary atherosclerosis. 3. The right-sided cardiac chambers are dilated. Correlate appropriate etiology. Note the central pulmonary artery is normal in caliber. 4. Pulmonary findings as described above, essentially unchanged when compared to prior examination. No evidence of central pulmonary artery embolism. Other findings described above. 5. Tiny nonocclusive venous thrombus identified in the right IJ as described above. 6. An addendum will be dictated by the Defense Analyst Radiologist regarding the nonvascular findings. Signed: Micah Fan MD Report Verified Date/Time: 10/26/2018 12:09:10 Reading Location: [place] [address] Cardiology MRI Performing Organization Address City/State/Zipcode Phone Number [facility] * VASCULAR DIAGRAM -SCAN (10/06/2018 1:21 PM DIMENSIONAL INSPECTOR) Narrative Performed At * POC-Glucose meter (10/01/2018 7:49 AM DIMENSIONAL INSPECTOR) Only the most recent of 25 results within the time period is included. POC-Glucose Meter 99Comment: TESTED AT [facility] 70 - 110 mg/dL [facility] [address] [facility] [address] [facility] Specimen Blood Performing Organization Address City/State/Zipcode Phone Number [facility] [address] [place] [address] [facility] * XR chest 1 view portable / bedside (10/01/2018 7:48 AM DIMENSIONAL INSPECTOR) Only the most recent of 6 results within the time period is included. Specimen Narrative Performed At FINAL REPORT [facility] Portable chest. CLINICAL HISTORY: post-op TEVAR. COMPARISON STUDY: Chest x-ray from yesterday. FINDINGS: The cardiac silhouette is enlarged. The pulmonary parenchyma demonstrates increased interstitial markings. An aortic stent graft is noted. No pneumothorax is seen. Degenerative changes are noted. IMPRESSION: No significant change. Signed: Gamal Pearson MD Report Verified Date/Time:10/01/2018 09:04:49 Reading Location: [facility] Radiology Reading Room Procedure Note Interface, External Ris In - 10/01/2018 9:07 AM DIMENSIONAL INSPECTOR FINAL REPORT Portable chest. CLINICAL HISTORY: post-op TEVAR. COMPARISON STUDY: Chest x-ray from yesterday. FINDINGS: The cardiac silhouette is enlarged. The pulmonary parenchyma demonstrates increased interstitial markings. An aortic stent graft is noted. No pneumothorax is seen. Degenerative changes are noted. IMPRESSION: No significant change. Signed: Gamal Pearson MD Report Verified Date/Time: 10/01/2018 09:04:49 Reading Location: [facility] Radiology Reading Room Performing Organization Address City/State/Zipcode Phone Number [facility] * aPTT (10/01/2018 5:33 AM DIMENSIONAL INSPECTOR) Only the most recent of 5 results within the time period is included. PTT 50.6 (H) 22.5 - 36.0 seconds [facility] Specimen Blood Performing Organization Address City/[facility]/Zipcode Phone Number [facility] [address] [place], [place] [id number] [facility] * Prothrombin time/INR (10/01/2018 5:33 AM DIMENSIONAL INSPECTOR) Only the most recent of 6 results within the time period is included. Protime 19.6 (H) 11.7 - 14.7 seconds [facility] INR 1.7 <=5.9 [facility] Specimen Blood Narrative Performed At RECOMMENDED COUMADIN/WARFARIN INR THERAPY RANGES [facility] STANDARD DOSE: 2.0 - 3.0 Includes: PROPHYLAXIS for venous thrombosis, [facility] systemic embolization; TREATMENT for venous thrombosis and/or pulmonary embolus. HIGH RISK: Target INR is 2.5-3.5 for patients with mechanical heart valves. Performing Organization Address City/[facility] Phone Number [facility] [address] [place] [address] [facility] * CBC (Hemogram only) (10/01/2018 3:35 AM DIMENSIONAL INSPECTOR) Only the most recent of 4 results within the time period is included. WBC 8.0 3.5 - 10.5 K/L [facility] RBC 4.93 4.63 - 6.08 M/L [facility] Hemoglobin 14.3 13.7 - 17.5 GM/DL [facility] Hematocrit 44.2 40.1 - 51.0 % [facility] MCV 89.7 79.0 - 92.2 fL [facility] MCH 29.0 25.7 - 32.2 pg [facility] MCHC 32.4 32.3 - 36.5 GM/DL [facility] RDW 14.7 (H) 11.6 - 14.4 % [facility] Platelets 134 (L) 150 - 450 K/CU MM [facility] MPV 10.0 9.4 - 12.4 fL [facility] nRBC 0 0 - 0 /100 WBC [facility] Specimen Blood Performing Organization Address City/State/Zipcode Phone Number [place] [phone] [place], [place] [phone] [facility] * Phosphorus (10/01/2018 3:35 AM DIMENSIONAL INSPECTOR) Only the most recent of 6 results within the time period is included. Phosphorus 2.1 (L) 2.3 - 4.7 mg/dL [facility] Specimen Blood Performing Organization Address City/[facility] Phone Number [address] [address] [facility] * Magnesium (10/01/2018 3:35 AM DIMENSIONAL INSPECTOR) Only the most recent of 10 results within the time period is included. Magnesium 1.9 1.6 - 2.6 mg/dL [facility] Specimen Blood Performing Organization Address [facility] Phone Number [address] [address] [facility] * Basic Metabolic Panel (10/01/2018 3:35 AM DIMENSIONAL INSPECTOR) Only the most recent of 9 results within the time period is included. Sodium 134 (L) 136 - 145 meq/L [facility] Potassium 4.3 3.5 - 5.1 meq/L [facility] Chloride 105 98 - 107 meq/L [facility] CO2 20 (L) 22 - 29 meq/L [facility] BUN 13 7 - 21 mg/dL [facility] Creatinine 0.80 0.57 - 1.25 mg/dL [facility] Glucose 99 70 - 105 mg/dL [facility] Calcium 8.7 8.4 - 10.2 mg/dL [facility] EGFR 94Comment: ESTIMATED GFR IS mL/min/1.73 sq m [facility] NOT ACCURATE CREATININE [facility] CLEARANCE IN PREDICTING GLOMERULAR FILTRATION RATE. ESTIMATED GFR IS NOT APPLICABLE FOR DIALYSIS PATIENTS. Specimen Blood Performing Organization Address City/[facility] Phone Number [facility] [address] [place] [address] [facility] * CTA chest, abdomen & pelvis - for dissection (09/30/2018 8:30 PM DIMENSIONAL INSPECTOR) Only the most recent of 2 results within the time period is included. Specimen Narrative Performed At [facility] RE[facility] STATUS:A Nonvascular findings: The lungs demonstrate peripheral areas of interlobular septal thickening and groundglass opacity which appear unchanged from 09/22/2018. These findings probably relate to chronic interstitial lung disease. No definitive findings of pulmonary fibrosis. 5 mm left lower lobe nodule is noted on axial image 138. Consider 12 month follow-up study in a patient with risk factors for carcinoma. There are small bilateral simple appearing renal cysts, which require no further imaging follow-up. Mild sigmoid diverticulosis, without evidence of diverticulitis. Signed: Rickie Corral MD Report Verified Date/Time:10/01/2018 09:56:02 Reading Location: [facility] Diagnostic Imaging Reading Room - [place] [address] Addendum Ends FINAL REPORT CTA Aorta - Chest, Abdomen, and Pelvis:09/30/2018 9:55 PM. Comparison:CTA chest abdomen and pelvis dated 09/22/2018. History:77 years old Male with chronic type II aortic dissection, status post Ascending TEVAR with 40 x 40 x10 Ascending Maplecrest graft and 45 X 45 X 10 Arise Maplecrest Graft.Evaluated for interval change. Indication:There is clinical need to define thoracic and abdominal aortic anatomy, as well as to assess vascular access for possible peripheral cannulation. There is a clinical concern of aortic aneurysm. This study is performed in an attempt to avoid an invasive procedure. TECHNIQUE: Spiral acquisition before and during intravenous contrast administration using a sensation 64 CT scanner. Images were obtained before and during the dynamic passage of intravenous contrast material.Multi-planar 3-D volume-rendering reconstruction was performed using an independent workstation interactively by the interpreting physician as well as the 3-D specialist for optimal visualization of the thoracoabdominal aorta, the pelvic arteries as well as its proximal branches. Please refer to the contrast sheet scanned in the EPIC system for the amount and route of contrast given. This exam was performed according to our departmental dose-optimization programme, which includes automated exposure control, adjustment of the mA and/or kV according to patient size and/or use of iterative reconstruction technique. Dose modulation, iterative reconstruction, and/or weight based adjustment of the mA/kV was utilized to reduce the radiation dose to as low as reasonably achievable. RESULT: Potential study limitations:None. CHEST: The visualized thyroid gland appears unremarkable. The chest wall is unremarkable.The mediastinum is unremarkable. Prominent mediastinal and bilateral hilar lymph nodes. An example is a subcarinal node with a short axis diameter of 1.2 cm. A right hilar lymph node measures 11 mm in short axis diameter. A left hilar lymph node measures 9 mm in short axis diameter. The pericardium appears normal.The pulmonary arteries are normal. The lung windows:Scattered bilateral interstitial thickening and groundglass opacities, nonspecific and possibly reflecting scarring or fibrosis. Superimposed pneumonitis should be excluded clinically. No pulmonary mass or suspicious nodule.The central airways are patent.There is no abnormal pulmonary parenchymal mass, infiltrate, or pleural effusion. The cardiac chambers have normal atrioventricular and ventriculoarterial concordance, and systemic and pulmonary venous return.The cardiac chamber sizes are notable for moderate left and mild right atrial enlargement. The coronary arteries have normal origins and courses.There are mild coronary calcifications identified, though this study was not optimized for coronary artery evaluation. VASCULAR WITH ADVANCED 3-D OFFLINE POST-PROCESSING: The aortic valve is structurally normal and is free from calcifications.The aortic root is symmetric and normal in dimension.The sinotubular junction is preserved. S/p TEVAR with an overlapping Ascending Maplecrest graft and Arise Maplecrest Graft commencing just above the sinotubular junction and terminates at the distal segment of the ascending thoracic aorta before the innominate artery, excluding a large, partially thrombosed chronic thrombosed type II aortic dissection, measuring 5.8 x 6.8 cm at its maximal diameter. The endostents are well-positioned. The proximal margin and the distal margin are well opposed. There is no evidence of leak or pseudoaneurysm noted. The aortic arch:Normal course, caliber and contour, except for mild atherosclerotic changes.The arch vessel branching pattern is normal, except for severe tortuosity noted near the origin of the right common carotid and subclavian.The arch branch vessels are widely patent at their proximal segments. The descending thoracic aorta:Is tortuous in its distal segment, but normal in caliber and contour. The abdominal aorta: Normal in course, caliber and contour, except for mild calcific atherosclerotic changes. The celiac artery, SMA, and STEVEN are patent. There are three left and one right femoral artery. The pelvic arteries are tortuous, but otherwise normal in course, caliber and contour.The common femoral and superficial femoral arteries are normal in course, caliber and contour. There is no acute aortic pathology, such as dissection, intramural hematoma, or contained rupture. Manager Branch dimensions of the thoracic aorta are as follows: *3.5 cm at the sinuses of Valsalva (measured [id number]) *5.8 x 6.8 cm in the mid-ascending aorta *3.9 x 4.6 cm at the distal ascending aorta *3.5 cm at the mid-transverse arch *3.3 cm at the proximal descending thoracic aorta *2.9 cm at the diaphragmatic hiatus Manager Branch dimensions of the abdominal aorta are as follows: *2.9 cm at the supra-mesenteric segment *2.5 cm at the mesenteric segment *2.3 cm at the renal segment *2.5 x 2.3 cm at the infrarenal segment *2.0 x 2.0 cm at the aortic bifurcation ABDOMEN-PELVIS: In the abdomen, the liver and spleen appears unremarkable. No abnormal enhancing structure is identified. The gallbladder and pancreas appears grossly normal. The adrenal glands are not enlarged. The kidneys are normal in size and shape. Bilateral simple appearing renal cyst with large exophytic cyst measuring 2.0 cm at the upper pole of the left kidney. No hydronephrosis or perirenal fluid collection is identified. Bowel is not well assessed by CT angiography as enteric contrast is not given. No obvious bowel dilation is seen. There is no significant retroperitoneal adenopathy.No free fluid or free air is identified. The visualized pelvic organs appear unremarkable. BONES: Degenerative changes involving the thoracic and lumbar spine. CONCLUSIONS: 1. S/p TEVAR with an overlapping Ascending Maplecrest graft and Arise Maplecrest Graft commencing just above the sinotubular junction and terminates at the distal segment of the ascending thoracic aorta before the innominate artery, excluding a large, partially thrombosed chronic type II aortic dissection, measuring 5.8 x 6.8 cm at its maximal diameter. The endostents are well-positioned. The proximal margin and the distal margin are well opposed. There is no evidence of leak or pseudoaneurysm noted. 2. Moderate left and mild right atrial enlargement. 3. Scattered bilateral interstitial thickening and groundglass opacities, nonspecific and possibly reflecting scarring or fibrosis. An addendum will be dictated regarding the non-vascular findings by the Defense Analyst Radiologist. Signed: Vijay Pereira MD Report Verified Date/Time:10/01/2018 09:14:43 Reading Location: [place] [address] Cardiology MRI Procedure Note Interface, External Ris In - 10/01/2018 9:58 AM DIMENSIONAL INSPECTOR Addendum Begins REPORT STATUS:A Nonvascular findings: The lungs demonstrate peripheral areas of interlobular septal thickening and groundglass opacity which appear unchanged from 09/22/2018. These findings probably relate to chronic interstitial lung disease. No definitive findings of pulmonary fibrosis. 5 mm left lower lobe nodule is noted on axial image 138. Consider 12 month follow-up study in a patient with risk factors for carcinoma. There are small bilateral simple appearing renal cysts, which require no further imaging follow-up. Mild sigmoid diverticulosis, without evidence of diverticulitis. Signed: Rickie Corral MD Report Verified Date/Time: 10/01/2018 09:56:02 Reading Location: [facility] Diagnostic Imaging Reading Room - [place] [address] Addendum Ends FINAL REPORT CTA Aorta - Chest, Abdomen, and Pelvis: 09/30/2018 9:55 PM. Comparison: CTA chest abdomen and pelvis dated 09/22/2018. History: 77 years old Male with chronic type II aortic dissection, status post Ascending TEVAR with 40 x 40 x10 Ascending Maplecrest graft and 45 X 45 X 10 Arise Maplecrest Graft. Evaluated for interval change. Indication: There is clinical need to define thoracic and abdominal aortic anatomy, as well as to assess vascular access for possible peripheral cannulation. There is a clinical concern of aortic aneurysm. This study is performed in an attempt to avoid an invasive procedure. TECHNIQUE: Spiral acquisition before and during intravenous contrast administration using a sensation 64 CT scanner. Images were obtained before and during the dynamic passage of intravenous contrast material. Multi-planar 3-D volume-rendering reconstruction was performed using an independent workstation interactively by the interpreting physician as well as the 3-D specialist for optimal visualization of the thoracoabdominal aorta, the pelvic arteries as well as its proximal branches. Please refer to the contrast sheet scanned in the EPIC system for the amount and route of contrast given. This exam was performed according to our departmental dose-optimization programme, which includes automated exposure control, adjustment of the mA and/or kV according to patient size and/or use of iterative reconstruction technique. Dose modulation, iterative reconstruction, and/or weight based adjustment of the mA/kV was utilized to reduce the radiation dose to as low as reasonably achievable. RESULT: Potential study limitations: None. CHEST: The visualized thyroid gland appears unremarkable. The chest wall is unremarkable. The mediastinum is unremarkable. Prominent mediastinal and bilateral hilar lymph nodes. An example is a subcarinal node with a short axis diameter of 1.2 cm. A right hilar lymph node measures 11 mm in short axis diameter. A left hilar lymph node measures 9 mm in short axis diameter. The pericardium appears normal. The pulmonary arteries are normal. The lung windows: Scattered bilateral interstitial thickening and groundglass opacities, nonspecific and possibly reflecting scarring or fibrosis. Superimposed pneumonitis should be excluded clinically. No pulmonary mass or suspicious nodule. The central airways are patent. There is no abnormal pulmonary parenchymal mass, infiltrate, or pleural effusion. The cardiac chambers have normal atrioventricular and ventriculoarterial concordance, and systemic and pulmonary venous return. The cardiac chamber sizes are notable for moderate left and mild right atrial enlargement. The coronary arteries have normal origins and courses. There are mild coronary calcifications identified, though this study was not optimized for coronary artery evaluation. VASCULAR WITH ADVANCED 3-D OFFLINE POST-PROCESSING: The aortic valve is structurally normal and is free from calcifications. The aortic root is symmetric and normal in dimension. The sinotubular junction is preserved. S/p TEVAR with an overlapping Ascending Maplecrest graft and Arise Maplecrest Graft commencing just above the sinotubular junction and terminates at the distal segment of the ascending thoracic aorta before the innominate artery, excluding a large, partially thrombosed chronic thrombosed type II aortic dissection, measuring 5.8 x 6.8 cm at its maximal diameter. The endostents are well-positioned. The proximal margin and the distal margin are well opposed. There is no evidence of leak or pseudoaneurysm noted. The aortic arch: Normal course, caliber and contour, except for mild atherosclerotic changes. The arch vessel branching pattern is normal, except for severe tortuosity noted near the origin of the right common carotid and subclavian. The arch branch vessels are widely patent at their proximal segments. The descending thoracic aorta: Is tortuous in its distal segment, but normal in caliber and contour. The abdominal aorta: Normal in course, caliber and contour, except for mild calcific atherosclerotic changes. The celiac artery, SMA, and STEVEN are patent. There are three left and one right femoral artery. The pelvic arteries are tortuous, but otherwise normal in course, caliber and contour. The common femoral and superficial femoral arteries are normal in course, caliber and contour. There is no acute aortic pathology, such as dissection, intramural hematoma, or contained rupture. Manager Branch dimensions of the thoracic aorta are as follows: *3.5 cm at the sinuses of Valsalva (measured [id number]) *5.8 x 6.8 cm in the mid-ascending aorta *3.9 x 4.6 cm at the distal ascending aorta *3.5 cm at the mid-transverse arch *3.3 cm at the proximal descending thoracic aorta *2.9 cm at the diaphragmatic hiatus Manager Branch dimensions of the abdominal aorta are as follows: *2.9 cm at the supra-mesenteric segment *2.5 cm at the mesenteric segment *2.3 cm at the renal segment *2.5 x 2.3 cm at the infrarenal segment *2.0 x 2.0 cm at the aortic bifurcation ABDOMEN-PELVIS: In the abdomen, the liver and spleen appears unremarkable. No abnormal enhancing structure is identified. The gallbladder and pancreas appears grossly normal. The adrenal glands are not enlarged. The kidneys are normal in size and shape. Bilateral simple appearing renal cyst with large exophytic cyst measuring 2.0 cm at the upper pole of the left kidney. No hydronephrosis or perirenal fluid collection is identified. Bowel is not well assessed by CT angiography as enteric contrast is not given. No obvious bowel dilation is seen. There is no significant retroperitoneal adenopathy. No free fluid or free air is identified. The visualized pelvic organs appear unremarkable. BONES: Degenerative changes involving the thoracic and lumbar spine. CONCLUSIONS: 1. S/p TEVAR with an overlapping Ascending Maplecrest graft and Arise Maplecrest Graft commencing just above the sinotubular junction and terminates at the distal segment of the ascending thoracic aorta before the innominate artery, excluding a large, partially thrombosed chronic type II aortic dissection, measuring 5.8 x 6.8 cm at its maximal diameter. The endostents are well-positioned. The proximal margin and the distal margin are well opposed. There is no evidence of leak or pseudoaneurysm noted. 2. Moderate left and mild right atrial enlargement. 3. Scattered bilateral interstitial thickening and groundglass opacities, nonspecific and possibly reflecting scarring or fibrosis. An addendum will be dictated regarding the non-vascular findings by the Defense Analyst Radiologist. Signed: Vijay Pereira MD Report Verified Date/Time: 10/01/2018 09:14:43 Reading Location: [place] [address] Cardiology MRI Performing Organization Address City/State/Zipcode Phone Number GE [facility]IS * Potassium (09/27/2018 9:27 PM DIMENSIONAL INSPECTOR) Potassium 4.3 3.5 - 5.1 meq/L [facility] Specimen Blood Narrative Performed At Check Serum Potassium level 2 hours after oral potassium replacement completed [facility] or 30 min after intravenous potassium replacement. [facility] Performing Organization Address City/[facility]/zoidu Phone Number [address] * TRANSFUSION SERVICE REPORT - SCAN (09/27/2018 6:00 PM DIMENSIONAL INSPECTOR) Only the most recent of 2 results within the time period is included. Narrative Performed At * Lactic acid, arterial, whole blood (09/27/2018 11:50 AM DIMENSIONAL INSPECTOR) Lactate, Art 1.3 0.5 - 2.2 mmol/L [facility] Specimen Blood, Arterial Performing Organization Address [facility]/[employer] Phone Number [address] * CBC with platelet count + automated diff (09/27/2018 11:23 AM DIMENSIONAL INSPECTOR) Only the most recent of 6 results within the time period is included. WBC 8.2 3.5 - 10.5 K/L [facility] RBC 5.18 4.63 - 6.08 M/L [facility] Hemoglobin 15.2 13.7 - 17.5 GM/DL [facility] Hematocrit 47.4 40.1 - 51.0 % [facility] MCV 91.5 79.0 - 92.2 fL [facility] MCH 29.3 25.7 - 32.2 pg [facility] MCHC 32.1 (L) 32.3 - 36.5 GM/DL [facility] RDW 14.7 (H) 11.6 - 14.4 % [facility] Platelets 149 (L) 150 - 450 K/CU MM [facility] MPV 9.1 (L) 9.4 - 12.4 fL [facility] nRBC 0 0 - 0 /100 WBC [facility] % Neutros 68 % [facility] % Lymphs 19 % [facility] % Monos 7 % [facility] % Eos 4 % [facility] % Baso 1 % [facility] # Neutros 5.60 (H) 1.78 - 5.38 K/L [facility] # Lymphs 1.57 1.32 - 3.57 K/L [facility] # Monos 0.54 0.30 - 0.82 K/L [facility] # Eos 0.32 0.04 - 0.54 K/L [facility] # Baso 0.05 0.01 - 0.08 K/L [facility] Immature 1 0 - 1 % [facility] Granulocytes-Relative [facility] Specimen Blood Performing Organization Address City/State/Zipcode Phone Number [facility] [address] [place] [address] [facility] * BILL (09/27/2018 8:46 AM DIMENSIONAL INSPECTOR) Narrative Performed At David Westbrook MD 09/27/20188:51 AM BILL Date: 09/27/2018 8:46 AM Sex: Male Location: OR Requesting Physician: Joshua Martínez MD Examiner: David Westbrook MD IntubatedSedated Patient screened for esoph disease: Yes Insertion: easy Probe Type: multiplane Modalities: 2D, CFM, CWD and PWD Pre Intervention Summary: PMHx a-fib and asc ao anuerysm Aorta: Dilated, though not aneurysmal in windows, though appears to continue to be dilating into blind spot (SoV 4.0, STJ 3.17, Asc Ao 4.26). No dissection or effusion noted. AV: trileaflet morphology, no aortic stenosis, trace central aortic regurgitation LV: normal chamber size , no LVH, normal systolic function (EF 55% by qualitative assessment), no RWMA, no thrombus MV: normal morphology, mild central mitral regurgitation, no mitral stenosis LA: no STEVEN thrombus visualized though SEC and low velocities in STEVEN PV: limited visualization RV: normal sized chamber, normal function, no thrombus TV: normal morphology, mild tricuspid regurgitation RA: no thrombus No PFO by color dopper flow All findings communicated to surgical team. Post Intervention Summary: Procedure Note David Westbrook MD - 09/27/2018 8:46 AM DIMENSIONAL INSPECTOR BILL Date: 09/27/2018 8:46 AM Sex: Male Location: OR Requesting Physician: Joshua Martínez MD Examiner: David Westbrook MD Intubated Sedated Patient screened for esoph disease: Yes Insertion: easy Probe Type: multiplane Modalities: 2D, CFM, CWD and PWD Pre Intervention Summary: PMHx a-fib and asc ao anuerysm Aorta: Dilated, though not aneurysmal in windows, though appears to continue to be dilating into blind spot (SoV 4.0, STJ 3.17, Asc Ao 4.26). No dissection or effusion noted. AV: trileaflet morphology, no aortic stenosis, trace central aortic regurgitation LV: normal chamber size , no LVH, normal systolic function (EF 55% by qualitative assessment), no RWMA, no thrombus MV: normal morphology, mild central mitral regurgitation, no mitral stenosis LA: no STEVEN thrombus visualized though SEC and low velocities in STEVEN PV: limited visualization RV: normal sized chamber, normal function, no thrombus TV: normal morphology, mild tricuspid regurgitation RA: no thrombus No PFO by color dopper flow All findings communicated to surgical team. Post Intervention Summary: * Potassium-Stat Lab (09/27/2018 8:35 AM DIMENSIONAL INSPECTOR) Potassium 4.4 3.6 - 5.5 meq/L [facility] Specimen Blood, Arterial Performing Organization Address [facility] Phone Number [address] * Sodium Na-Stat Lab (09/27/2018 8:35 AM DIMENSIONAL INSPECTOR) Sodium 134 (L) 135 - 148 meq/L [facility] Specimen Blood, Arterial Performing Organization Address [facility] Phone Number [address] * Glucose-Stat Lab (09/27/2018 8:35 AM DIMENSIONAL INSPECTOR) Glucose 97 70 - 110 mg/dL [facility] Specimen Blood, Arterial Performing Organization Address [facility] Phone Number [address] * HGB/HCT (H&H)-Stat Lab (09/27/2018 8:35 AM DIMENSIONAL INSPECTOR) Hemoglobin 16.3 13.0 - 16.8 g/dL [facility] Hematocrit 48.0 40.0 - 50.0 % [facility] Specimen Blood, Arterial Performing Organization Address [facility] Phone Number [address] * Calcium, Ionized (09/27/2018 8:35 AM DIMENSIONAL INSPECTOR) Calcium, Ion 1.19 1.12 - 1.27 mmol/L [facility] pH, Blood 7.38 [facility] Specimen Blood Performing Organization Address City/[facility] Phone Number [id number] [place] [address] [phone] * Blood gas, arterial (09/27/2018 8:35 AM DIMENSIONAL INSPECTOR) pH, Arterial 7.39 7.35 - 7.45 [facility] pCO2, Arterial 41 35 - 45 mmHg [facility] pO2, Arterial 83 80 - 90 mmHg [facility] O2 Sat, Arterial 96.5 96.0 - 97.0 % [facility] HCO3, Arterial 24 21 - 29 mmol/L [facility] Base Excess, Arterial -1.0 -2.0 - 3.0 mmol/L [facility] Patient Temperature 36.2 C [facility] FIO2 70.0 % [facility] Specimen Blood, Arterial Performing Organization Address City/[facility] Phone Number [id number] [place] [address] * POC ACTIVATED CLOTTING TIME (09/27/2018 7:22 AM DIMENSIONAL INSPECTOR) Only the most recent of 2 results within the time period is included. Activated Clotting Time 147Comment: TESTED AT [facility] sec [address] Specimen Blood Performing Organization Address City/State/Zipcode Phone Number [id number] [place] [address] [phone] [address] * Prepare RBC (09/26/2018 7:54 PM DIMENSIONAL INSPECTOR) CROSSMATCH COMPATIBLE SAFETRACE TX Unit ABO O Pos SAFETRACE TX UNIT NUMBER [id number] SAFETRACE TX Status READY SAFETRACE TX Blood Bank Product RED BLOOD CELLS SAFETRACE TX PRODUCT CODE [id number] SAFETRACE TX CROSSMATCH COMPATIBLE SAFETRACE TX Unit ABO O Pos SAFETRACE TX UNIT NUMBER [id number] SAFETRACE TX Status READY SAFETRACE TX Blood Bank Product RED BLOOD CELLS SAFETRACE TX PRODUCT CODE [id number] SAFETRACE TX CROSSMATCH COMPATIBLE SAFETRACE TX Unit ABO O Pos SAFETRACE TX UNIT NUMBER [id number] SAFETRACE TX Status READY SAFETRACE TX Blood Bank Product RED BLOOD CELLS SAFETRACE TX PRODUCT CODE [id number] SAFETRACE TX CROSSMATCH COMPATIBLE SAFETRACE TX Unit ABO O Pos SAFETRACE TX UNIT NUMBER [id number] SAFETRACE TX Status READY SAFETRACE TX Blood Bank Product RED BLOOD CELLS SAFETRACE TX PRODUCT CODE [id number] SAFETRACE TX Performing Organization Address [facility] Phone Number SAFETRACE TX * Type and screen, automated (09/26/2018 10:11 AM DIMENSIONAL INSPECTOR) Only the most recent of 2 results within the time period is included. ABO/RH AUTOMATED (BEAKER) O POSITIVE [facility] Ab Scrn NEGATIVE [facility] Specimen Blood Performing Organization Address City/[facility] Hospital[facility] Phone Number [facility] [address] [place] [address] MEDICAL CENTER * Lipid panel (09/23/2018 4:32 AM DIMENSIONAL INSPECTOR) Triglycerides 119 mg/dL [facility] Cholesterol 149 mg/dL [facility] HDL 28 mg/dL [facility] LDL Calculated 97 mg/dL [facility] Specimen Blood Narrative Performed At Triglyceride Reference Range: [facility] Low Risk <150 [facility] [id number] High Risk 200-499 Very High Risk>=500 Cholesterol Reference Range: Low Risk <200 [id number] High Risk>240 HDL Cholesterol Reference Range: Low Risk >=60 High Risk <40 LDL Cholesterol Reference Range: Optimal<100 Near [id number] Llkagtjyyt673-121 Uikr768-348 Very High >=190 Performing Organization Address City/State/Zipcode Phone Number [facility] [address] [place] [address] [facility] * Arterial doppler legs bilateral (09/22/2018 12:48 PM DIMENSIONAL INSPECTOR) Ejection Fraction [facility] MKCKESSON CPACS Specimen Impressions Performed At Right Impression [facility] 1. The posterior tibial and dorsalis pedis arteries are patent with normal MKCKESSON CPACS triphasic Doppler waveforms. 2. The PT pressure is 139 mmHg with an MADIE of 1.18 and the DP pressure is 136 mmHg with an MADIE of 1.15, within normal range. 3. The great toe pressure is >255 mmHg with an abnormal TBI of non compressible. 4. The digits have adequate flow by PPG waveforms. Left Impression 1. The posterior tibial and dorsalis pedis arteries are patent with normal triphasic Doppler waveforms. 2. The PT pressure is 132 mmHg with an MADIE of 1.12 and the DP pressure is 135 mmHg with an MADIE of 1.14, within normal range. 3. The great toe pressure is >255 mmHg with an abnormal TBI of non compressible. 4. The digits have adequate flow by PPG waveforms. Conclusions Summary Arterial pressures and Doppler waveforms were performed bilaterally. Adequate Doppler waveforms were obtained. Doppler waveforms were triphasic with normal flow bilaterally. The right and left MADIE's were within normal range. The toe pressure and TBI's were non compressible bilaterally. The digits had adequate flow by PPG waveforms bilaterally. Signature Velocities are measured in cm/s ; Diameters are measured in cm Narrative Performed At [facility] - Lower Extremity Arterial Procedure [facility] Demographics MKCKESSPATRICK CPACS Patient Name JLUIS JENNINGS Date of Study09/22/2018 [id number] Age77 Visit Number [id number] Gender Male Accession Number [id number] Date of Birth1940 [facility] [id number] MD Renetta SonographerHeather Guillermo Alonso, Interpreting ESTHER Gibsonean zafarOHSmith Barillas T Procedure Type of Study: Extremities Arteries: Lower Extremity Arterial Procedure, ARTERIAL (MADIE'S W/DOPPLER) ONLY. Indications for Study:Ascending aortic disection . Patient Status:ILEANA. Study Location:Portable. Technical Quality:Adequate visualization. Risk Factors History of Disease + +----+ + !Diagnosis !Date!Comments ! + +----+ + !History/Risk Factors: !!HTN, HLD, Apnea, Aortic dissection! + +----+ + Procedure Note Interface, External Ris In - 09/22/2018 8:48 PM DIMENSIONAL INSPECTOR [facility] - Lower Extremity Arterial Procedure Demographics Patient Name JLUIS JENNINGS Date of Study 09/22/2018 Age 77 Visit Number [id number] Gender Male Accession Number [id number] Date of 1940 Referring Sammy Wise Room Number [id number] Physician MD Porfirio Homogenizer Operator Dalia Alonso, Interpreting Ashley Flores RVT Physician MD Raya Barillas T Procedure Type of Study: Extremities Arteries: Lower Extremity Arterial Procedure, ARTERIAL (MADIE'S W/DOPPLER) ONLY. Indications for Study:Ascending aortic disection . Patient Status:ILEANA. Study Location:Portable. Technical Quality:Adequate visualization. Risk Factors History of Disease + +----+ + !Diagnosis !Date!Comments ! + +----+ + !History/Risk Factors: ! !HTN, HLD, Apnea, Aortic dissection ! + +----+ + Impressions Right Impression 1. The posterior tibial and dorsalis pedis arteries are patent with normal triphasic Doppler waveforms. 2. The PT pressure is 139 mmHg with an MADIE of 1.18 and the DP pressure is 136 mmHg with an MADIE of 1.15, within normal range. 3. The great toe pressure is >255 mmHg with an abnormal TBI of non compressible. 4. The digits have adequate flow by PPG waveforms. Left Impression 1. The posterior tibial and dorsalis pedis arteries are patent with normal triphasic Doppler waveforms. 2. The PT pressure is 132 mmHg with an MADIE of 1.12 and the DP pressure is 135 mmHg with an MADIE of 1.14, within normal range. 3. The great toe pressure is >255 mmHg with an abnormal TBI of non compressible. 4. The digits have adequate flow by PPG waveforms. Conclusions Summary Arterial pressures and Doppler waveforms were performed bilaterally. Adequate Doppler waveforms were obtained. Doppler waveforms were triphasic with normal flow bilaterally. The right and left MADIE's were within normal range. The toe pressure and TBI's were non compressible bilaterally. The digits had adequate flow by PPG waveforms bilaterally. Signature Velocities are measured in cm/s ; Diameters are measured in cm Performing Organization Address City/State/Zipcode Phone Number [facility] iRiseESSON CPACS * Carotid doppler bilateral (09/22/2018 12:48 PM DIMENSIONAL INSPECTOR) Ejection Fraction [facility] CuídateLAB MKCKESSON CPACS Specimen Impressions Performed At Right Impression [facility] Flyzik 1. There is <50% diameter reduction (approximately 39% by 2-D measurement) MKZivixCS in the internal carotid artery with a peak velocity of 56.3 cm/sec and heterogeneous plaque. 2. There is non-occluding plaque in the external carotid artery. 3. There is non-occluding plaque in the common carotid artery. 4. The vertebral artery flow is antegrade and normal. 5. The subclavian artery is within normal limits where visualized. Left Impression 1. There is <50% diameter reduction (approximately 20% by 2-D measurement) in the internal carotid artery with a peak velocity of 45.2 cm/sec and heterogeneous plaque. 2. The external carotid artery is within normal limits. 3. The common carotid artery is within normal limits. 4. The vertebral artery flow is antegrade and normal. 5. The subclavian artery is within normal limits where visualized. Conclusions Summary Carotid duplex scanning and color flow imaging were performed bilaterally. The arteries were adequately visualized. The bilateral internal carotid arteries had <50% hemodynamically insignificant stenosis (approximately 39% by 2-D measurement on the right, approximately 20% by 2-D measurement on the left) with heterogeneous plaque. The vertebral artery flow was antegrade and normal bilaterally. The subclavian arteries were patent with normal flow bilaterally where visualized. Signature Velocities are measured in cm/s ; Diameters are measured in cm Carotid Right Measurements + +----+----+-----+ + + + !Location !PSV !EDV !Angle!%Stenosis 2D!%Stenosis Doppler!Tortuosity ! + +----+----+-----+ + + + !Prox CCA !41!20.5!60 !! ! ! + +----+----+-----+ + + + !Dist CCA !42.8!20.5!60 !! ! ! + +----+----+-----+ + + + !Prox ICA !42.2!17.6!60 !! ! ! + +----+----+-----+ + + + !Dist ICA !56.3!27.6!60 !! ! ! + +----+----+-----+ + + + !Prox ECA !62.7!12.3!60 !! ! ! + +----+----+-----+ + + + !Vertebral!35.4!16.9!60 !! ! ! + +----+----+-----+ + + + !Prox Subclavian!77!0 !60 !! ! ! + +----+----+-----+ + + + - There is antegrade vertebral flow noted on the right side. - Additional Measurements:ICAPSV/CCAPSV 1.32.ICAEDV/CCAEDV 1.35. Carotid Left Measurements + +----+----+-----+ + + + !Location !PSV !EDV !Angle!%Stenosis 2D!%Stenosis Doppler!Tortuosity ! + +----+----+-----+ + + + !Prox CCA !51.6!22.3!60 !! ! ! + +----+----+-----+ + + + !Dist CCA !42.8!19.6!60 !! ! ! + +----+----+-----+ + + + !Prox ICA !26.7!12.6!60 !! ! ! + +----+----+-----+ + + + !Dist ICA !45.2!25.1!60 !! ! ! + +----+----+-----+ + + + !Prox ECA !42.4!12.6!60 !! ! ! + +----+----+-----+ + + + !Vertebral!33!14.1!60 !! ! ! + +----+----+-----+ + + + !Prox Subclavian!82.7!0 !60 !! ! ! + +----+----+-----+ + + + - There is antegrade vertebral flow noted on the left side. - Additional Measurements:ICAPSV/CCAPSV 1.06.ICAEDV/CCAEDV 1.13. Narrative Performed At [facility] - Carotid Duplex Study [facility] Demographics MKCKJUANY CPA Patient Name JLUIS JENNINGS Date of Study09/22/2018 [id number] Age77 Visit Number [id number] Gender Male Accession Number [id number] Date of Birth1940 [facility] [id number] MD Renetta SonographerDalia Alonso, Interpreting Ashley Flores, [facility] Barillas [facility] Procedure Type of Study: Cerebral: Carotid, CAROTID DOPPLER, BILATERAL. Indications for Study:Ascending aortic disection . Patient Status:ILEANA. Study Location:Portable. Technical Quality:Adequate visualization. Risk Factors History of Disease + +----+ + !Diagnosis !Date!Comments ! + +----+ + !History/Risk Factors: !!HTN, HLD, Apnea, Aortic dissection! + +----+ + Procedure Note Interface, External Ris In - 09/22/2018 8:47 PM DIMENSIONAL INSPECTOR [facility] - Carotid Duplex Study Demographics Patient Name JLUIS JENNINGS Date of Study 09/22/2018 Age 77 Visit Number [id number] Gender Male Accession Number [id number] Date of 1940 Referring Sammy Wise Room Number [id number] Physician Porfirio MD Homogenizer Operator Dalia Alonso, Interpreting Ashley Flores RVT Physician MD Raya Barillas T Procedure Type of Study: Cerebral: Carotid, CAROTID DOPPLER, BILATERAL. Indications for Study:Ascending aortic disection . Patient Status:ILEANA. Study Location:Portable. Technical Quality:Adequate visualization. Risk Factors History of Disease + +----+ + !Diagnosis !Date!Comments ! + +----+ + !History/Risk Factors: ! !HTN, HLD, Apnea, Aortic dissection ! + +----+ + Impressions Right Impression 1. There is <50% diameter reduction (approximately 39% by 2-D measurement) in the internal carotid artery with a peak velocity of 56.3 cm/sec and heterogeneous plaque. 2. There is non-occluding plaque in the external carotid artery. 3. There is non-occluding plaque in the common carotid artery. 4. The vertebral artery flow is antegrade and normal. 5. The subclavian artery is within normal limits where visualized. Left Impression 1. There is <50% diameter reduction (approximately 20% by 2-D measurement) in the internal carotid artery with a peak velocity of 45.2 cm/sec and heterogeneous plaque. 2. The external carotid artery is within normal limits. 3. The common carotid artery is within normal limits. 4. The vertebral artery flow is antegrade and normal. 5. The subclavian artery is within normal limits where visualized. Conclusions Summary Carotid duplex scanning and color flow imaging were performed bilaterally. The arteries were adequately visualized. The bilateral internal carotid arteries had <50% hemodynamically insignificant stenosis (approximately 39% by 2-D measurement on the right, approximately 20% by 2-D measurement on the left) with heterogeneous plaque. The vertebral artery flow was antegrade and normal bilaterally. The subclavian arteries were patent with normal flow bilaterally where visualized. Signature Velocities are measured in cm/s ; Diameters are measured in cm Carotid Right Measurements + +----+----+-----+ + + + !Location !PSV !EDV !Angle!%Stenosis 2D!%Stenosis Doppler!Tortuosity ! + +----+----+-----+ + + + !Prox CCA !41 !20.5!60 ! ! ! ! + +----+----+-----+ + + + !Dist CCA !42.8!20.5!60 ! ! ! ! + +----+----+-----+ + + + !Prox ICA !42.2!17.6!60 ! ! ! ! + +----+----+-----+ + + + !Dist ICA !56.3!27.6!60 ! ! ! ! + +----+----+-----+ + + + !Prox ECA !62.7!12.3!60 ! ! ! ! + +----+----+-----+ + + + !Vertebral !35.4!16.9!60 ! ! ! ! + +----+----+-----+ + + + !Prox Subclavian!77 !0 !60 ! ! ! ! + +----+----+-----+ + + + - There is antegrade vertebral flow noted on the right side. - Additional Measurements:ICAPSV/CCAPSV 1.32.ICAEDV/CCAEDV 1.35. Carotid Left Measurements + +----+----+-----+ + + + !Location !PSV !EDV !Angle!%Stenosis 2D!%Stenosis Doppler!Tortuosity ! + +----+----+-----+ + + + !Prox CCA !51.6!22.3!60 ! ! ! ! + +----+----+-----+ + + + !Dist CCA !42.8!19.6!60 ! ! ! ! + +----+----+-----+ + + + !Prox ICA !26.7!12.6!60 ! ! ! ! + +----+----+-----+ + + + !Dist ICA !45.2!25.1!60 ! ! ! ! + +----+----+-----+ + + + !Prox ECA !42.4!12.6!60 ! ! ! ! + +----+----+-----+ + + + !Vertebral !33 !14.1!60 ! ! ! ! + +----+----+-----+ + + + !Prox Subclavian!82.7!0 !60 ! ! ! ! + +----+----+-----+ + + + - There is antegrade vertebral flow noted on the left side. - Additional Measurements:ICAPSV/CCAPSV 1.06.ICAEDV/CCAEDV 1.13. Performing Organization Address City/State/Zipcode Phone Number [facility] MKCKESSON CPACS * Platelet Aggregation: Function Screen (09/22/2018 12:16 PM DIMENSIONAL INSPECTOR) Weak ADP 79 60 - 91 % [facility] Plt. Function Screen 60-100% indicates normal [facility] Interpretation platelet function [facility] Pathologist: Benton Dela Cruz M.D. (electonic [facility] signature) [facility] Platelets 167 150 - 450 K/CU MM [facility] Specimen Blood Narrative Performed At Platelet Function Screen results may be falsely low with platelet counts [facility] <100,000/cu mm. [facility] Performing Organization Address City/[facility]/Zipcode Phone Number [address] * armando SANTOS (09/22/2018 1:22 AM DIMENSIONAL INSPECTOR) ABO Grouping O [facility] Rh Factor POS [facility] Specimen Blood Performing Organization Address City/[facility] Phone Number [address] * TSH/Free T4 If Indicated (09/22/2018 12:55 AM DIMENSIONAL INSPECTOR) TSH 4.64 0.35 - 4.94 uIU/mL [facility] Specimen Blood Performing Organization Address City/[facility]/Zipcode Phone Number [address] * Thromboelastograph (TEG) (09/22/2018 12:55 AM DIMENSIONAL INSPECTOR) TEG Activated Clotting 5.8 4.0 - 7.0 minutes [facility] Time [facility] TEG Fibrinogen Activity 60.2 (L) 61.0 - 73.0 degrees [facility] TEG Platelet Aggregation 56.2 55.0 - 65.0 MM [facility] TEG Fibrinolysis 0.1 0.0 - 5.0 % [facility] TEG-H Activated Clotting 5.8 4.0 - 7.0 minutes [facility] Time [facility] TEG-H Fibrinogen Activity 60.5 (L) 61.0 - 73.0 degrees [facility] TEG-H Platelet 53.5 (L) 55.0 - 65.0 MM [facility] Aggregation [facility] TEG-H Fibrinolysis 2.0 0.0 - 5.0 % [facility] Specimen Blood Performing Organization Address City/[facility]/[place] [address] [phone] * Hemoglobin A1c (09/22/2018 12:55 AM DIMENSIONAL INSPECTOR) Hemoglobin A1C 7.0 (H) 4.3 - 6.1 % [facility] Specimen Blood Performing Organization Address City/State/[facility] Phone Number [place] [phone] * Comprehensive metabolic panel (09/22/2018 12:55 AM DIMENSIONAL INSPECTOR) Protein, Total 6.9 6.0 - 8.3 gm/dL [facility] Albumin 3.4 (L) 3.5 - 5.0 g/dL [facility] Alkaline Phosphatase 71 40 - 150 U/L [facility] Total Bilirubin 0.9 0.2 - 1.2 mg/dL [facility] Sodium 135 (L) 136 - 145 meq/L [facility] Potassium 4.1 3.5 - 5.1 meq/L [facility] Chloride 105 98 - 107 meq/L [facility] CO2 25 22 - 29 meq/L [facility] BUN 18 7 - 21 mg/dL [facility] Creatinine 1.07 0.57 - 1.25 mg/dL [facility] Glucose 94 70 - 105 mg/dL [facility] Calcium 9.2 8.4 - 10.2 mg/dL [facility] AST 34 5 - 34 U/L [facility] ALT 35 6 - 55 U/L [facility] EGFR 67Comment: ESTIMATED GFR IS mL/min/1.73 sq m [facility] NOT ACCURATE CREATININE [facility] CLEARANCE IN PREDICTING GLOMERULAR FILTRATION RATE. ESTIMATED GFR IS NOT APPLICABLE FOR DIALYSIS PATIENTS. Specimen Blood Performing Organization Address City/State/Zipcode Phone Number [facility] [address] [place] [address] [facility] * 2D Echo W/Doppler(CW/PW/Color) (09/21/2018 11:28 PM DIMENSIONAL INSPECTOR) Ejection Fraction [facility] ECHO [facility] Specimen Narrative Performed At Transthoracic Echocardiography Report (TTE) [facility] ECHO [facility]ART[facility] Demographics [facility] Patient NameRIVAS, ARMANDODate of Study09/21/2018 Male Visit [id number] Unknown Room [id number] Number Date of 1940ReferringCHRISTOPHER PORFIRIO Physician Age 77 year(s)SonographerSrickey Connor RDCS, RVT Interpreting Physician SebleMD FellowHeather MD Roz Procedure Type of Study TTE procedure:2DECHO W DOPPLER(CW/PW/COLOR) (STAT) Indications:Aortic dissection. Clinical History afib, htn, aortic dissection Contrast Medium: Definity. Amount - 2 ml Height: 63 inches Weight: 95.25 kg (210 lbs) BSA: 1.97 m^2 BMI: 37.2 kg/m^2 HR: 11 bpm BP: 142/106 mmHg Summary Aortic root size (SInus of Valsalva diameter) is normal . Proximal ascending aorta size is Moderately dilated . Aortic dissection is present in the following location(s): ascending aorta . [id number] tricuspid regurgitation. Estimated peak systolic PA pressure is 35-40 mmHg . Rapid rhythm during the exam. Mild concentric LV hypertrophy. All of the LV segments contract normally . LVEF by Hagen's method of disk assessment is normal (55-60%) . Previous Study No prior exam available for comparison. Signature Findings Rhythm/BPRapid rhythm during the exam. Left Ventricle LV endocardium is adequately visualized with IV ultrasound enhancing agent. The left ventricle is chamber size (by vol index) is normal (male - LVED vol - 34-74ml/m2). Mild concentric LV hypertrophy. All of the LV segments contract normally . LVEF by Hagen's method of disk assessment is normal (55-60%) . Grade 3 diastolic dysfunction (marked elevated LA pressure). Left AtriumLA size is severely enlarged (>48 ml/m2) . Right VentricleThe right ventricular chamber size and systolic function are within normal limits. Right Atrium RA size is normal. Aortic Valve Mild AoV cusp thickening. No evidence of aortic regurgitation. Mitral Valve Normal MV structure. Trace mitral regurgitation. Tricuspid ValveTV structure is normal. Kniy-mq-lkglchah tricuspid regurgitation. Estimated peak systolic PA pressure is 35-40 mmHg . Pulmonic Valve Normal PV structure and function by limited views and Doppler. AortaAortic root size (SInus of Valsalva diameter) is normal . Proximal ascending aorta size is Moderately dilated . Aortic dissection is present in the following location(s): ascending aorta . PericardiumNo significant pericardial effusion is visualized. IVC/SVC/PA/PV/PleuralThe estimated RA pressure by IVC dynamics 0-5mmHg . Chambers/Structures Left Atrium LA Volume: 116.2 ml LA Area: 32.78 cm^2 LA Vol. Index: 59 ml/m^2 Left Ventricle LVIDd: 4.2 cmLVEDV:78.5 ml LV Septum Diastolic: 1.25 cm LV PW Diastolic: 1.24 cm LVEDV Hagen's:100.2 ml LVESV Hagen's:43.88 ml LVEF Hagen's: 56.2 % LVEDVI: 51 ml/m^2 LVESVI: 22 ml/m^2 LVOT Diameter: 2.18 cm Aorta Ao Root S of Freida.: 3.65 cmAscending Aorta: 4.59 cm Doppler/Quantitative Measurements Mitral Valve MV Peak E-Wave: 0.98 m/sMV Peak A-Wave: 0.56 m/s E/A Ratio: 1.75 Peak Gradient: 3.85 mmHg MV Yuri. Peak: Aortic Valve Peak Velocity: 1.12 m/sMean Velocity: 0.6 m/s Peak Gradient: 5.01 mmHg Mean Gradient: 1.84 mmHg AV Area (continuity): 2.69 cm^2 AV VTI: 13.64 cm AV DVI: 0.72 LVOT Peak Velocity: 0.65 m/sPeak Gradient: 1.7 mmHg Mean Velocity: 0.4 m/s Mean Gradient: 0.8 mmHg LVOT Diameter: 2.18 cm LVOT VTI: 9.84 cm LVOT Area: 3.73 cm^2 LVOT SV:36.71 ml LVOT CO: 0.4 l/min LVOT CI: 0.2 l/min/m^2 Tricuspid Valve TR Velocity: 2.99 m/s TR Gradient: 35.87 mmHg Procedure Note Interface, External Ris In - 09/22/2018 6:38 AM DIMENSIONAL INSPECTOR Transthoracic Echocardiography Report (TTE) Demographics Patient Name JLUIS JENNINGS Date of Study 09/21/2018 Gender Male Visit Number [id number] Race Unknown Room Number C727 Number Date of 1940 Referring SAMMY MONROY Physician Age 77 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 Clinical History afib, htn, aortic dissection Contrast Medium: Definity. Amount - 2 ml Height: 63 inches Weight: 95.25 kg (210 lbs) BSA: 1.97 m^2 BMI: 37.2 kg/m^2 HR: 11 bpm BP: 142/106 mmHg Summary Aortic root size (SInus of Valsalva diameter) is normal . Proximal ascending aorta size is Moderately dilated . Aortic dissection is present in the following location(s): ascending aorta . [id number]-[id number] tricuspid regurgitation. Estimated peak systolic PA pressure is 35-40 mmHg . Rapid rhythm during the exam. Mild concentric LV hypertrophy. All of the LV segments contract normally . LVEF by Hagen's method of disk assessment is normal (55-60%) . Previous Study No prior exam available for comparison. Signature Findings Rhythm/BP Rapid rhythm during the exam. Left Ventricle LV endocardium is adequately visualized with IV ultrasound enhancing agent. The left ventricle is chamber size (by vol index) is normal (male - LVED vol - 34-74ml/m2). Mild concentric LV hypertrophy. All of the LV segments contract normally . LVEF by Hagen's method of disk assessment is normal (55-60%) . Grade 3 diastolic dysfunction (marked elevated LA pressure). Left Atrium LA size is severely enlarged (>48 ml/m2) . Right Ventricle The right ventricular chamber size and systolic function are within normal limits. Right Atrium RA size is normal. Aortic Valve Mild AoV cusp thickening. No evidence of aortic regurgitation. Mitral Valve Normal MV structure. Trace mitral regurgitation. Tricuspid Valve TV structure is normal. Uljy-nj-plmaprma tricuspid regurgitation. Estimated peak systolic PA pressure is 35-40 mmHg . Pulmonic Valve Normal PV structure and function by limited views and Doppler. Aorta Aortic root size (SInus of Valsalva diameter) is normal . Proximal ascending aorta size is Moderately dilated . Aortic dissection is present in the following location(s): ascending aorta . Pericardium No significant pericardial effusion is visualized. IVC/SVC/PA/PV/Pleural The estimated RA pressure by IVC dynamics 0-5mmHg . Chambers/Structures Left Atrium LA Volume: 116.2 ml LA Area: 32.78 cm^2 LA Vol. Index: 59 ml/m^2 Left Ventricle LVIDd: 4.2 cm LVEDV:78.5 ml LV Septum Diastolic: 1.25 cm LV PW Diastolic: 1.24 cm LVEDV Hagen's:100.2 ml LVESV Hagen's:43.88 ml LVEF Hagen's: 56.2 % LVEDVI: 51 ml/m^2 LVESVI: 22 ml/m^2 LVOT Diameter: 2.18 cm Aorta Ao Root S of Freida.: 3.65 cm Ascending Aorta: 4.59 cm Doppler/Quantitative Measurements Mitral Valve MV Peak E-Wave: 0.98 m/s MV Peak A-Wave: 0.56 m/s E/A Ratio: 1.75 Peak Gradient: 3.85 mmHg MV Yuri. Peak: Aortic Valve Peak Velocity: 1.12 m/s Mean Velocity: 0.6 m/s Peak Gradient: 5.01 mmHg Mean Gradient: 1.84 mmHg AV Area (continuity): 2.69 cm^2 AV VTI: 13.64 cm AV DVI: 0.72 LVOT Peak Velocity: 0.65 m/s Peak Gradient: 1.7 mmHg Mean Velocity: 0.4 m/s Mean Gradient: 0.8 mmHg LVOT Diameter: 2.18 cm LVOT VTI: 9.84 cm LVOT Area: 3.73 cm^2 LVOT SV:36.71 ml LVOT CO: 0.4 l/min LVOT CI: 0.2 l/min/m^2 Tricuspid Valve TR Velocity: 2.99 m/s TR Gradient: 35.87 mmHg Performing Organization Address City/State/Zipcode Phone Number [facility] * ECG 12 lead (09/21/2018 10:54 PM DIMENSIONAL INSPECTOR) Only the most recent of 2 results within the time period is included. Specimen Narrative Performed At Ventricular Rate 111 BPM GE MUSE Atrial Rate 131 BPM QRS Duration 82 ms Q-T Interval 344 ms QTC Calculation(Bazett) 467 ms R [place] -34 degrees T [place] -72 degrees Atrial fibrillation with rapid ventricular response Left axis deviation Abnormal ECG When compared with ECG of 21-SEP-2018 22:44, No significant change was found Confirmed by Roberto LUNA MICHAEL ([id number]) on 09/22/2018 6:57:06 AM Procedure Note Interface, External Ris In - 09/22/2018 6:57 AM DIMENSIONAL INSPECTOR Ventricular Rate 111 BPM Atrial Rate 131 BPM QRS Duration 82 ms Q-T Interval 344 ms QTC Calculation(Bazett) 467 ms R [place] -34 degrees T [place] -72 degrees Atrial fibrillation with rapid ventricular response Left axis deviation Abnormal ECG When compared with ECG of 21-SEP-2018 22:44, No significant change was found Confirmed by Roberto LUNA MICHAEL ([id number]) on 09/22/2018 6:57:06 AM Performing Organization Address City/State/Zipcode Phone Number [place] after 11/23/2017 Insurance Payer Benefit Subscriber ID Type Phone Address Plan / Group [employer] TEX[employer] x[facility]xxx [facility] Advance Directives For more information, please contact: [facility] [address] [place], [place] [address] [address] Date Inactivated Comments Code Status Date Activated 10/01/2018 1:46 PM Full Code 09/21/2018 10:10 PM This code status was determined by: Patient
== END 2018-11-24 20:40 | disposition left against medical advice (07) ==
LOC: ER 20:26
DX: R42 Dizziness and giddiness (principal)

== ENCOUNTER 2020-08-15 11:03 | Inpatient (IN) | payer MEDICARE ==
[~2020-08-15] VITALS: Ht 162.6 cm; Wt 91.2 kg
[2020-08-15] MEDS ORDERED: HYDRALAZINE HCL 20 MG/ML VIAL IV STA (11:38)
[2020-08-15 12:08] LABS: BASOPHILS % 0.5 % (0.0-1.0); EOSINOPHILS # (AUTO) 0.2 (0.0-0.4); HEMATOCRIT 51.9 % (38.2-49.6); HEMOGLOBIN 16.5 g/dL (14.0-18.0); LYMPHOCYTES # (AUTO) 1.1 (1.0-3.2); LYMPHOCYTES % 15.4 % (18.0-39.1); MEAN CORPUSCULAR HEMOGLOBIN 29.4 pg (28-32); MEAN CORPUSCULAR HGB CONC 31.8 g/dL (31-35); MEAN CORPUSCULAR VOLUME 92.3 fL (81-99); MONOCYTES # (AUTO) 0.8 (0.2-0.8); MONOCYTES % 10.3 % (4.4-11.3); NEUTROPHILS # (AUTO) 5.2 (2.1-6.9); NEUTROPHILS % 71.3 % (38.7-80.0); PLATELET COUNT 177 x10e3/uL (140-360); RED BLOOD COUNT 5.62 x10e6/uL (4.3-5.7); RED CELL DISTRIBUTION WIDTH 16.5 % (11.7-14.4)
[2020-08-15 12:19] LABS: INR 2.03; PROTHROMBIN TIME 24.5 seconds (11.9-14.5)
[2020-08-15 12:28] LABS: ALANINE AMINOTRANSFERASE 24 IU/L (0-55); ALBUMIN 3.4 g/dL (3.5-5.0); ALBUMIN/GLOBULIN RATIO 0.9 (0.8-2.0); ALKALINE PHOSPHATASE 85 IU/L (40-150); ANION GAP 13.2 mmol/L (8-16); BLOOD UREA NITROGEN 17 mg/dL (7-26); BUN/CREATININE RATIO 15 (6-25); CARBON DIOXIDE 28 mmol/L (22-29); CHLORIDE 104 mmol/L (98-107); CREATINE KINASE 110 IU/L (30-200); CREATININE, SERUM 1.13 mg/dL (0.72-1.25); EST GLOMERULAR FILTRATION RATE > 60 ML/MIN (60-); GLUCOSE 89 mg/dL (74-118); MAGNESIUM 2.1 MG/DL (1.3-2.1); POTASSIUM 5.2 mmol/L (3.5-5.1); SODIUM 140 mmol/L (136-145)
[2020-08-15] MEDS ORDERED: MORPHINE SULFATE INJ 2 MG/ML SYR IV PRN (13:30)
[2020-08-15] MEDS ORDERED: HYDRALAZINE HCL 20 MG/ML VIAL IV PRN (13:30)
[2020-08-15] MEDS ORDERED: ONDANSETRON HCL INJ 2MG/ML 2ML 2 MG/ML VIAL IV PRN (13:30)
[2020-08-15] MEDS ORDERED: NITROGLYCERIN 0.4 MG SUBL SL PRN (13:30)
[2020-08-15] MEDS ORDERED: NITROGLYCERIN 2% OINT 1 GM PKT TOP ONE (14:15)
[2020-08-15] MEDS: FAMOTIDINE 20 MG/2 ML VIAL IV SCH ×2 (14:45→22:00)
[2020-08-15] MEDS ORDERED: SOD POLYSTYRENE SULFONATE SUSP 15 GM/60 ML BTL PO ONE (17:00)
[2020-08-15 17:31] VITALS: BP 146/91
[2020-08-15 17:35] VITALS: BP 146/91
[2020-08-15] MEDS ORDERED: BISOPROLOL FUMARATE 10 MG TAB PO SCH (18:00)
[2020-08-15] MEDS: CEFTRIAXONE SOD 1 GM/NS 50 ML 50 ML IV SCH (18:07)
[2020-08-15] MEDS: ACETAMINOPHEN 325 MG TAB PO PRN (19:42)
[2020-08-15 19:45] VITALS: BP 135/102
[2020-08-15 20:00] VITALS: BP 135/102
[2020-08-15] MEDS: AZITHROMYCIN 500MG/NS 250 ML 250 ML IV SCH (20:12)
[2020-08-15] MEDS ORDERED: SODIUM CHLORIDE 0.9% 250ML 250 ML ONE (20:17)
[2020-08-15 21:13] LABS: CREATINE KINASE MB 1.1 ng/mL (0-5.0)
[2020-08-15] MEDS ORDERED: DEXTROSE 50% SYRINGE 50 ML IV PRN (21:30)
[2020-08-15] MEDS: INSULIN LISPRO 100 UNIT/1 ML 3ML VIAL SQ SCH (21:45)
[2020-08-15] MEDS ORDERED: atrovastatin PO (22:36)
[2020-08-15] MEDS ORDERED: CLONIDINE HCL0.1 MG PO (22:36)
[2020-08-15] MEDS ORDERED: LOSARTAN POTAS100 MG PO (22:36)
[2020-08-15] MEDS ORDERED: OXYBUTYNIN CHLOR5 M1 PO (22:36)
[2020-08-15] MEDS ORDERED: DIGOXIN125 MCG PO (22:36)
[2020-08-15] MEDS ORDERED: HYDROCHLOROTHIA25 MG PO (22:36)
[2020-08-15] MEDS ORDERED: IOPAMIDOL 370 MG/ML 200 ML INFUS..BTL INJ ONE (23:22)
[2020-08-15] MEDS ORDERED: SODIUM CHLORIDE 0.9% 100 ML ONE (23:22)
[2020-08-16] VITALS (7 sets, daily range): BP systolic 105–152; BP diastolic 66–116
[2020-08-16] MEDS ORDERED: metoprolol er PO (00:56)
[2020-08-16 05:47] LABS: BASOPHILS % 0.4 % (0.0-1.0); EOSINOPHILS # (AUTO) 0.1 (0.0-0.4); EOSINOPHILS % 0.5 % (0.0-6.0); HEMATOCRIT 47.7 % (38.2-49.6); HEMOGLOBIN 15.5 g/dL (14.0-18.0); LYMPHOCYTES # (AUTO) 1.2 (1.0-3.2); LYMPHOCYTES % 12.9 % (18.0-39.1); MEAN CORPUSCULAR HEMOGLOBIN 29.2 pg (28-32); MEAN CORPUSCULAR HGB CONC 32.5 g/dL (31-35); MEAN CORPUSCULAR VOLUME 89.8 fL (81-99); MONOCYTES # (AUTO) 1.2 (0.2-0.8); MONOCYTES % 13.3 % (4.4-11.3); NEUTROPHILS # (AUTO) 6.7 (2.1-6.9); NEUTROPHILS % 72.6 % (38.7-80.0); PLATELET COUNT 166 x10e3/uL (140-360); RED BLOOD COUNT 5.31 x10e6/uL (4.3-5.7); RED CELL DISTRIBUTION WIDTH 16.6 % (11.7-14.4)
[2020-08-16] MEDS ORDERED: LEVOTHYROXINE SODIUM 100 MCG TAB PO SCH (06:00)
[2020-08-16 06:15] LABS: ALANINE AMINOTRANSFERASE 20 IU/L (0-55); BLOOD UREA NITROGEN 22 mg/dL (7-26); BUN/CREATININE RATIO 19 (6-25); CALCIUM 8.7 mg/dL (8.4-10.2); CARBON DIOXIDE 24 mmol/L (22-29); CHLORIDE 105 mmol/L (98-107); CREATININE, SERUM 1.14 mg/dL (0.72-1.25); EST GLOMERULAR FILTRATION RATE > 60 ML/MIN (60-); GLUCOSE 97 mg/dL (74-118); SODIUM 137 mmol/L (136-145)
[2020-08-16 06:16] LABS: ALBUMIN/GLOBULIN RATIO 0.8 (0.8-2.0); ALKALINE PHOSPHATASE 80 IU/L (40-150); CHOL/HDL RATIO 3.8 (3.9-4.7); CHOLESTEROL 117 MD/DL (0-199); HDL CHOLESTEROL 31 MG/DL (40-60); LDL CHOLESTEROL 68 MG/DL (60-130); TRIGLYCERIDES 91 MG/DL (0-149)
[2020-08-16 07:06] LABS: CREATINE KINASE MB 0.8 ng/mL (0-5.0)
[2020-08-16] MEDS: ACETAMINOPHEN 325 MG TAB PO PRN (07:28)
[2020-08-16] MEDS: INSULIN LISPRO 100 UNIT/1 ML 3ML VIAL SQ SCH ×4 (07:30→20:48)
[2020-08-16] MEDS ORDERED: ASPIRIN 81 MG ENTERIC COATED PO SCH (09:00)
[2020-08-16] MEDS ORDERED: VALSARTAN 160 MG TAB PO SCH (09:00)
[2020-08-16] MEDS: TAMSULOSIN HCL 0.4 MG CAP PO SCH (09:05)
[2020-08-16] MEDS: DIGOXIN 0.125 MG TAB PO SCH (09:05)
[2020-08-16] MEDS: OXYBUTYNIN CHLORIDE XL 5 MG TAB PO SCH (09:05)
[2020-08-16] MEDS: METOPROLOL TARTRATE 50 MG TAB PO SCH ×2 (09:05→17:42)
[2020-08-16] MEDS: AMLODIPINE BESYLATE 5 MG TAB PO SCH (09:05)
[2020-08-16] MEDS: LOSARTAN POTASSIUM 100 MG TAB PO SCH (09:05)
[2020-08-16] MEDS ORDERED: ONDANSETRON HCL 4 MG ORAL DISINTEGRATING TAB PO PRN (13:00)
[2020-08-16] MEDS: CEFTRIAXONE SOD 1 GM/NS 50 ML 50 ML IV SCH (17:41)
[2020-08-16] MEDS: AZITHROMYCIN 500MG/NS 250 ML 250 ML IV SCH (20:18)
[2020-08-16] MEDS: ATORVASTATIN 20 MG TAB PO SCH (21:02)
[2020-08-17] VITALS (12 sets, daily range): BP systolic 137–174; BP diastolic 91–126
[2020-08-17 05:26] LABS: BASOPHILS % 0.5 % (0.0-1.0); EOSINOPHILS # (AUTO) 0.1 (0.0-0.4); EOSINOPHILS % 1.4 % (0.0-6.0); HEMATOCRIT 46.6 % (38.2-49.6); HEMOGLOBIN 15.2 g/dL (14.0-18.0); LYMPHOCYTES # (AUTO) 1.2 (1.0-3.2); LYMPHOCYTES % 13.3 % (18.0-39.1); MEAN CORPUSCULAR HEMOGLOBIN 29.7 pg (28-32); MEAN CORPUSCULAR HGB CONC 32.6 g/dL (31-35); MONOCYTES # (AUTO) 1.2 (0.2-0.8); MONOCYTES % 14.2 % (4.4-11.3); NEUTROPHILS # (AUTO) 6.1 (2.1-6.9); NEUTROPHILS % 69.9 % (38.7-80.0); PLATELET COUNT 164 x10e3/uL (140-360); RED BLOOD COUNT 5.12 x10e6/uL (4.3-5.7); RED CELL DISTRIBUTION WIDTH 16.5 % (11.7-14.4)
[2020-08-17 05:46] LABS: BLOOD UREA NITROGEN 18 mg/dL (7-26); BUN/CREATININE RATIO 19 (6-25); CALCIUM 8.5 mg/dL (8.4-10.2); CARBON DIOXIDE 25 mmol/L (22-29); CHLORIDE 105 mmol/L (98-107); CREATININE, SERUM 0.97 mg/dL (0.72-1.25); EST GLOMERULAR FILTRATION RATE > 60 ML/MIN (60-); GLUCOSE 116 mg/dL (74-118); SODIUM 136 mmol/L (136-145)
[2020-08-17] MEDS: INSULIN LISPRO 100 UNIT/1 ML 3ML VIAL SQ SCH ×4 (07:30→20:52)
[2020-08-17] MEDS: LOSARTAN POTASSIUM 100 MG TAB PO SCH (08:41)
[2020-08-17] MEDS: OXYBUTYNIN CHLORIDE XL 5 MG TAB PO SCH (08:42)
[2020-08-17] MEDS: TAMSULOSIN HCL 0.4 MG CAP PO SCH (08:42)
[2020-08-17] MEDS: DIGOXIN 0.125 MG TAB PO SCH (08:44)
[2020-08-17] MEDS: METOPROLOL TARTRATE 50 MG TAB PO SCH ×2 (08:45→17:19)
[2020-08-17] MEDS: AMLODIPINE BESYLATE 5 MG TAB PO SCH (08:45)
[2020-08-17] MEDS ORDERED: BISACODYL 5 MG TAB EC PO ONE (14:45)
[2020-08-17] MEDS ORDERED: METOPROLOL TART50 MG PO (15:33)
[2020-08-17] MEDS ORDERED: DILTIAZEM HCL 5 MG/ML 5 ML VIAL IV ONE (17:45)
[2020-08-17] MEDS ORDERED: DILTIAZEM HCL VIAL 5 ML ONE (17:45)
[2020-08-17 19:24] LABS: CREATINE KINASE MB 0.8 ng/mL (0-5.0)
[2020-08-17] MEDS: LEVOTHYROXINE SODIUM 125 MCG TAB PO SCH (20:12)
[2020-08-17] MEDS: CEFTRIAXONE SOD 1 GM/NS 50 ML 50 ML IV SCH (20:50)
[2020-08-17] MEDS: ATORVASTATIN 20 MG TAB PO SCH (20:51)
[2020-08-17] MEDS: CLONIDINE HCL 0.1 MG TAB PO SCH (20:51)
[2020-08-17] MEDS: AZITHROMYCIN 500MG/NS 250 ML 250 ML IV SCH (20:51)
[2020-08-17] MEDS: ACETAMINOPHEN 325 MG TAB PO PRN (20:52)
[2020-08-18 04:00] VITALS: BP_SYST 115; BP_SYST 122; BP_DIAS 75; BP_DIAS 81
[2020-08-18] MEDS: LEVOTHYROXINE SODIUM 125 MCG TAB PO SCH (05:41)
[2020-08-18] MEDS: INSULIN LISPRO 100 UNIT/1 ML 3ML VIAL SQ SCH ×3 (07:30→16:30)
[2020-08-18 08:14] VITALS: BP 133/100
[2020-08-18 08:20] VITALS: BP 133/100
[2020-08-18] MEDS: DIGOXIN 0.125 MG TAB PO SCH (09:58)
[2020-08-18] MEDS: TAMSULOSIN HCL 0.4 MG CAP PO SCH (09:58)
[2020-08-18] MEDS: CLONIDINE HCL 0.1 MG TAB PO SCH ×2 (09:58→17:46)
[2020-08-18] MEDS: OXYBUTYNIN CHLORIDE XL 5 MG TAB PO SCH (09:58)
[2020-08-18] MEDS: LOSARTAN POTASSIUM 100 MG TAB PO SCH (09:58)
[2020-08-18] MEDS: METOPROLOL TARTRATE 50 MG TAB PO SCH ×2 (09:58→17:46)
[2020-08-18] MEDS: AMLODIPINE BESYLATE 5 MG TAB PO SCH (10:00)
[2020-08-18 12:01] VITALS: BP 116/77
[2020-08-18 16:25] VITALS: BP 116/77
[2020-08-18 16:26] VITALS: BP 124/91
[2020-08-18] MEDS ORDERED: DOCUSATE SODIUM 100 MG CAP PO SCH (17:00)
[2020-08-18] MEDS: CEFTRIAXONE SOD 1 GM/NS 50 ML 50 ML IV SCH (17:46)
[2020-08-18] MEDS: AZITHROMYCIN 500MG/NS 250 ML 250 ML IV SCH (18:28)
== END 2020-08-18 19:52 | disposition short-term general hospital (02) | DRG 300 ==
LOC: ER 11:21 → ERHOLD 13:28 → MED/SURG 17:37 → OBSVTOIN 21:37
PROVIDERS: ADMIT Internal Medicine; ATTEND Internal Medicine
DX: I71.4 Abdominal aortic aneurysm, without rupture (principal); I48.20 Chronic atrial fibrillation, unspecified; I16.0 Hypertensive urgency; Z20.822 Contact with and (suspected) exposure to COVID-19; E03.9 Hypothyroidism, unspecified; E11.9 Type 2 diabetes mellitus without complications; E78.5 Hyperlipidemia, unspecified; E87.5 Hyperkalemia; R07.9 Chest pain, unspecified; Z53.20 Procedure and treatment not carried out because of patient's decision for unspecified reasons; Z87.891 Personal history of nicotine dependence; N40.0 Benign prostatic hyperplasia without lower urinary tract symptoms
CPT/HCPCS: 36415; 71045; 71275; 80048; 80053; 80061; 80162; 82550; 82553; 82948; 83735; 83880; 84484; 85025; 85610; 85730; 93005; 93306; 99284; J0360; J0456; J0696; J7050; Q9967; U0002